=== PATIENT | male | born 1945 | race African-American/Black ===

== ENCOUNTER 2017-04-30 20:04 | Emergency (ER) | payer OTHER ==
[2017-04-30 20:14] VITALS: BP 160/78; PULSE 59; TEMP 97.8; BMI 24.4
--- NOTE | 2017-04-30 20:54 | PDOC ---
History of Present Illness - General Chief Complaint: Chest Pain Stated Complaint: CHEST PAIN Time Seen by Provider: 04/30/17 20:14 History Source: Patient Exam Limitations: No Limitations - History of Present Illness Initial Comments: 04/30/17 20:51 72 y/o M with PMH HTN who presents to the ED c/o chest tightness over the past two days. As per pt, yesterday, he noticed chest tightness in his L axilla after increased physical exertion. It radiated to the right side of his anterior chest, and was a/w LUE numbness. Pt felt this pain yesterday when working around the house- cooking, cleaning, moving vases. The pain was alleviated when he lay down to sleep, and returned today when he was working around the house. Pt endorses increased stress recently as his mother has been in the hospital, and he was recently in the [facility] custodial. He states that he has had difficulty caring for his mother and moving homes. Pt also endorses mild tinnitus (may be related to his increased aspirin intake). Otherwise pt denies fever, chills, chest pain, diaphoresis, N/V/D, or changes in urinary or bowel function. PMH: as above PsxH: R knee- bursitis, drained meds: denies allergies: NKDA FH: mother - DM SH: lives at home currently. quit smoking cigarettes 3-4 years ago, but had smoked for 20-30 yrs total, many cigars. Unable to quantify. Used to drink alcohol "was drunk for three years". Smoked marijuana in past, as well as " other drugs" but would not specify Past History - Past Medical History Allergies/Adverse Reactions: Allergies Allergy/AdvReac Type Severity Reaction Status Date / Time No Known Allergies Allergy Verified 10/15/14 11:11 Home Medications: Ambulatory Orders Hydrochlorothiazide 25 mg PO DAILY #30 tablet 10/15/14 COPD: No - Suicide/Smoking/Psychosocial Hx Smoking History: Current some day smoker Have you smoked in the past 12 months: Yes Information on smoking cessation initiated: No Hx Alcohol Use: No Drug/Substance Use Hx: No Review of Systems - Review of Systems Able to Perform ROS?: Yes Respiratory: Yes: Shortness of Breath Cardiac (ROS): Yes: Chest Tightness All Other Systems: Reviewed and Negative *Physical Exam - Vital Signs Last Vital Signs Temp Pulse Resp BP Pulse Ox 97.8 F 59 L 18 160/78 100 04/30/17 20:12 04/30/17 20:12 04/30/17 20:12 04/30/17 20:12 04/30/17 20:12 - Physical Exam General Appearance: Yes: Nourished, Appropriately Dressed HEENT: positive: EOMI, CHANTAL Neck: positive: Supple Respiratory/Chest: positive: Lungs Clear, Normal Breath Sounds Cardiovascular: positive: Regular Rhythm, Regular Rate, S1, S2 Vascular Pulses: Dorsalis-Pedis (R): 2+, Doralis-Pedis (L): 2+ Gastrointestinal/Abdominal: positive: Normal Bowel Sounds, Soft Musculoskeletal: positive: Normal Inspection, Other (normal active and passive ROM ) Extremity: positive: Normal Range of Motion 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 Likely musculoskeletal pain however will complete cardio work up as pt with chest pain. R/o ACS. Will also order general labs - CBC, CMP, coags , EKG, trops/cardiac profile. And reassess 04/30/17 23:19 CK MB elevated 4.6 will trend next CK MB/Trop/Cardiac profile at 1AM 04/30/17 23:48 will also gently hydrate - 1L NS Cr 1.6 - unclear of baseline 04/30/17 23:50 Will give aspirin 324mg x 1 *DC/Admit/Observation/Transfer Diagnosis at time of Disposition: Chest pain, Hypertension - Discharge Dispostion Disposition: AGAINST MEDICAL ADVICE Condition at time of disposition: Fair - Referrals Referrals: Tom Taylor MD [Staff Physician] - Lea Velasco MD [Primary Care Provider] - - Patient Instructions Printed Discharge Instructions: DI for Chest Pain Additional Instructions: Please call the brazing machine operator automatic this AM. Please call Dr. Reynoso this Am. Please keep your appointment as scheduled for thursday. Please return to the ED if you develop any chest pain or shortness of breath. Please return to the ED with any further concerns. Your troponin (cardiac enzyme) was mildly elevated. Please take an aspirin daily. - Post Discharge Activity
--- NOTE | 2017-04-30 21:14 | PDOC ---
Attending Attestation - Resident Resident Name: Glenda Olivarez - ED Attending Attestation I have performed the following: I have examined & evaluated the patient, The case was reviewed & discussed with the resident, I agree w/resident's findings & plan, Exceptions are as noted - Medical Decision Making 04/30/17 21:14 I, Dr. Flor Miner, DO, attest that this document has been prepared under my direction and personally reviewed by me in its entirety. I further attest, that it accurately reflects all work, treatment, procedures and medical decision -making performed by me. 04/30/17 23:48 a/p: 72yo male with L axillary pain that radiates across his chest -atypical presentation for ACS, however hx of HTN and noncompliant with meds -will check labs, ekg, cxr -will send trops x 2 -nontoxic in appearnace -cp free at this time 04/30/17 23:49 trop 0.05. will repeat Cr 1.6, baseline 1.3 will give ivf hydration 05/01/17 02:01 pt has been cp free in the ED has appt thursday with Dr. Velasco low risk cp, can follow up outpt with cardiology if trops negative 05/01/17 02:05 troponin did increase discussed with patient staying for another trop and cards eval call placed to Dr. Reynoso, awaiting call back pt agreeable to stay for further eval 05/01/17 02:19 pt now states he cannot stay for further eval. states he wants to sign out AMA. states he has to take care of his mother and he is the only one to do it. states he has an appt on thursday with Dr. Reynoso. States he will call the oncology nurse first thing today and arrange for follow up. states he understands all reasons to return to the ED. States he understands his cardiac enzymes have mildly elevated and his chest discomfort most likely is coming from the heart and he needs further eval. states he understands he is signing out AMA. states he will take asa daily. 05/01/17 02:20 Note: The patient insists on leaving the emergency dept and is signing out against medical advice. The patient understands the risks and complications that may result from the refusal of medical care and admission which includes and permanent disability. The patient has the mental capacity of understanding the risks of refusing care and is capable of making an informed decision. The patient was instructed to return to the emergency department should he change his mind regarding medical care or should his condition worsen. The patient signed the Against Medical Advice form. <Flor Miner - Last Filed: 05/01/17 02:19> - HPI HPI: 05/01/17 02:25 Patient is a 72 year old male with a significant history of HTN who presents to the ED with complaints of chest tightness that began 2 days ago. Patient reports experiencing increased chest tightness that began 2 days ago while at home, prompting him to come into the ED for further evaluation. He reports chest discomfort began in his left armpit yesterday afternoon that he states began to radiate towards his chest that is worse with exertion. Patient reports experiencing associated numbness and tingling in his left arm and fingertips. He reports symptoms subsided when he layed down to sleep but states they returned this morning while he was active around his home. Patient reports experiencing associated intermittent Sob with exertion. He reports beginning to take his HTN medication but states he previously was not on in for multiple years. Denies nausea, vomiting. Denies fevers, chills. Denies contact with sick individuals, out of state travelling. Denies any other symptoms. Allergies: None Social history: Current smoker. No alcohol. No illicit drugs. Surgical history: None PMD: Dr. Velasco. - Physicial Exam PE: 05/01/17 02:25 GENERAL: Awake, alert, and fully oriented, in no acute distress HEAD: No signs of trauma EYES: PERRLA, EOMI, sclera anicteric, conjunctiva clear ENT: Auricles normal inspection, hearing grossly normal, nares patent, oropharynx clear without exudates. Moist mucosa NECK: Normal ROM, supple, no lymphadenopathy, JVD, or masses LUNGS: Breath sounds equal, clear to auscultation bilaterally. No wheezes, and no crackles HEART: Regular rate and rhythm, normal S1 and S2, no murmurs, rubs or gallops ABDOMEN: Soft, nontender, normoactive bowel sounds. No guarding, no rebound. No masses EXTREMITIES: Normal range of motion, no edema. No clubbing or cyanosis. No cords, erythema, or tenderness NEUROLOGICAL: Cranial nerves II through XII grossly intact. Normal speech, normal gait SKIN: Warm, Dry, normal turgor, no rashes or lesions noted. - Medical Decision Making 05/01/17 02:25 Documentation prepared by Bruno Luciano, acting as medical customer service representative for Flor Miner DO, MD/. <Bruno Luciano - Last Filed: 05/01/17 02:26> Discharge Disposition - Discharge Dispostion Admit: Yes <Flor Miner - Last Filed: 05/01/17 02:19> <Bruno Luciano - Last Filed: 05/01/17 02:26> - Diagnosis Chest pain, Hypertension - Discharge Dispostion Disposition: AGAINST MEDICAL ADVICE Condition at time of disposition: Fair - Referrals Referrals: Lea Velasco MD [Primary Care Provider] - Tom Taylor MD [Staff Physician] - - Patient Instructions Printed Discharge Instructions: DI for Chest Pain Additional Instructions: Please call the oncology nurse this AM. Please call Dr. Reynoso this Am. Please keep your appointment as scheduled for thursday. Please return to the ED if you develop any chest pain or shortness of breath. Please return to the ED with any further concerns. Your troponin (cardiac enzyme) was mildly elevated. Please take an aspirin daily. - Post Discharge Activity Heart Score/ECG Review - History History: Slightly suspicious - Electrocardiogram EKG: Normal - Age Age: >/= 65 - Risk Factors Risk Factors Heart Score: Yes Hx Hypertension Based on the list above the patient has:: 1-2 risk factors - Troponin Troponin: 1-3x normal limit - Score Heart Score - Total: 4 - ECG Intrepretation Comment:: 04/30/17 21:14 sinus at 61, nl axis, nl interval, t wave inversions v6, I, avl, no acute findings, abnl ekg <Flor Miner - Last Filed: 05/01/17 02:19>
[2017-04-30 21:35] LABS: BASO % 0.5 % (0-2.0); EOS % 1.3 % (0-4.5); HEMATOCRIT 39.4 % (35.4-49); HEMOGLOBIN 13.3 GM/dL (11.7-16.9); LYMPH % 30.3 % (8-40); MCH 29.5 pg (25.7-33.7); MCHC 33.7 g/dl (32.0-35.9); MEAN CELL VOLUME 87.4 fl (80-96); MONO % 10.9 % (3.8-10.2); PLATELET COUNT 205 K/MM3 (134-434); RBC 4.51 M/mm3 (4.00-5.60); RDW 15.2 % (11.9-15.9); WHITE BLOOD COUNT 5.7 K/mm3 (4.0-10.0)
[2017-04-30 21:51] LABS: INR 0.96 (0.82-1.09); PROTHROMBIN TIME (PATIENT) 10.9 SEC (9.98-11.88)
[2017-04-30 22:00] LABS: ALBUMIN 3.6 g/dl (3.4-5.0); ANION GAP 9 (8-16); BILIRUBIN,TOTAL 0.4 mg/dL (0.2-1.0); BLOOD UREA NITROGEN 19 mg/dL (7-18); CALCIUM 8.6 mg/dL (8.5-10.1); CHLORIDE 108 mmol/L (98-107); CO2 27 mmol/L (21-32); CREATININE 1.6 mg/dL (0.7-1.3); GLUCOSE,RANDOM 83 mg/dL (74-106); POTASSIUM 3.8 mmol/L (3.5-5.1); SGOT/AST 27 U/L (15-37); SGPT/ALT 37 U/L (12-78); SODIUM 144 mmol/L (136-145); TOT PROT 6.5 g/dl (6.4-8.2)
[2017-04-30 22:02] LABS: ALK PHOS 83 U/L (45-117)
[2017-04-30] MEDS ORDERED: SODIUM CHLORIDE 1,000 ML IV STA (23:47)
[2017-04-30] MEDS ORDERED: ASPIRIN 81 MG CHEWABLE TABLETS PO ONE (23:50)
[2017-05-01] MEDS ORDERED: ASPIRIN 81 MG CHEWABLE TABLETS ONE (00:22)
--- NOTE | 2017-05-01 08:48 | EKG ---
Test Reason : Blood Pressure : / mmHG Vent. Rate : 061 BPM Atrial Rate : 061 BPM P-R Int : 154 ms QRS Dur : 096 ms QT Int : 420 ms P-R-T Axes : 059 006 063 degrees QTc Int : 422 ms POOR DATA QUALITY, INTERPRETATION MAY BE ADVERSELY AFFECTED NORMAL SINUS RHYTHM NORMAL ECG WHEN COMPARED WITH ECG OF 15-OCT-2014 12:45, T WAVE INVERSION NO LONGER EVIDENT IN LATERAL LEADS Confirmed by LIO MORENO, СВЕТЛАНА ([id number]) on 05/01/2017 8:48:04 AM Referred By: Confirmed By:СВЕТЛАНА VACA MD
== END 2017-05-01 02:48 | disposition left against medical advice (07) ==
LOC: JER 20:04
PROC: 3E0337Z Introduction of Electrolytic and Water Balance Substance into Peripheral Vein, Percutaneous Approach (ICD-10-PCS; principal; 2017-04-30)
DX: R07.9 Chest pain, unspecified (principal); I10 Essential (primary) hypertension
CPT/HCPCS: 36415; 71046-TC-FY; 80053; 82550; 82553; 84484; 85025; 85610; 93005; 93010; 99283-25

== ENCOUNTER 2017-12-14 23:01 | Emergency (ER) | payer OTHER ==
[2017-12-14 23:10] VITALS: TEMP 98.7; BMI 25.0
--- NOTE | 2017-12-15 00:56 | PDOC ---
History of Present Illness - General Chief Complaint: Blood Pressure Problem Stated Complaint: HIGH BLOOD PRESSURE Time Seen by Provider: 12/15/17 00:15 - History of Present Illness Initial Comments: The patient is a 72M w/ a history of HTN who presents for evaluation of a headache at home that lasted for several seconds which has since resolved. He reports that he has not been taking his BP medications (metoprolol and amlodipine) for at least a month and was concerned that he was having a stroke. The patient reports that the LOPEZ was b/l frontal headache described as pressure and then felt a sharp pain shoot across the left side of his head posteriorly. At that time he denies having chest pain, changes in vision He denies pain currently or any other symptoms. 12/15/17 00:52 Past History - Past Medical History Allergies/Adverse Reactions: Allergies Allergy/AdvReac Type Severity Reaction Status Date / Time No Known Allergies Allergy Verified 12/14/17 23:08 Home Medications: Ambulatory Orders Amlodipine Besylate 10 mg PO DAILY 30 Days #30 tablet 12/15/17 Amlodipine Besylate [Norvasc -] 10 mg PO DAILY 12/15/17 Metoprolol Tartrate 25 mg PO DAILY 30 Days #30 tablet 12/15/17 Metoprolol Tartrate [Lopressor -] 25 mg PO DAILY 12/15/17 COPD: No HTN: Yes - Suicide/Smoking/Psychosocial Hx Smoking History: Never smoked Have you smoked in the past 12 months: Yes If you are a former smoker, when did you quit?: many years ago Information on smoking cessation initiated: No Hx Alcohol Use: No Drug/Substance Use Hx: No Review of Systems - Review of Systems Able to Perform ROS?: Yes Comments:: GENERAL/CONSTITUTIONAL: No fever or chills. No weakness HEAD, EYES, EARS, NOSE AND THROAT: No change in vision. No ear pain or discharge. No sore throat CARDIOVASCULAR: No chest pain or shortness of breath RESPIRATORY: No cough, wheezing, or hemoptysis GASTROINTESTINAL: No nausea, vomiting, diarrhea or constipation GENITOURINARY: No dysuria, frequency, or change in urination MUSCULOSKELETAL: No joint or muscle swelling or pain. No neck or back pain SKIN: No rash NEUROLOGIC: No current headache, vertigo, loss of consciousness, or change in strength/sensation ENDOCRINE: No increased thirst. No abnormal weight change HEMATOLOGIC/LYMPHATIC: No anemia, easy bleeding, or history of blood clots ALLERGIC/IMMUNOLOGIC: No hives or skin allergy 12/15/17 01:05 Is the patient limited Bengali proficient: No *Physical Exam - Vital Signs Last Vital Signs Temp Pulse Resp BP Pulse Ox 98.7 F 89 18 156/98 100 12/14/17 23:08 12/14/17 23:08 12/14/17 23:08 12/14/17 23:08 12/14/17 23:08 - Physical Exam Comments: GENERAL: Awake, alert, and fully oriented, in no acute distress HEAD: No signs of trauma, normocephalic, atraumatic EYES: PERRL, EOMI, sclera anicteric, conjunctiva clear ENT: Hearing grossly normal, nares patent, oropharynx clear without exudates. Moist mucosa NECK: Normal ROM, supple, no lymphadenopathy LUNGS: No distress, speaks full sentences, clear to auscultation bilaterally HEART:Regular rate and rhythm, normal S1 and S2, no murmurs appreciated, peripheral pulses normal and equal bilaterally ABDOMEN: Soft, nontender, normoactive bowel sounds. No guarding, no rebound EXTREMITIES : Normal inspection, Normal range of motion, no edema NEUROLOGICAL: Cranial nerves II through XII grossly intact. Normal speech, normal gait, no focal sensorimotor deficits 12/15/17 01:05 Medical Decision Making - Medical Decision Making The patient is a 72M who comes in for evaluation of a transient LOPEZ at home that has since resolved and also has not taken his BP medication for the past month 2 /2 stress/not filling his medications ED Course Amlodipine 10mg PO once Lopressor 25mg PO once Will send Rx for both of his medications to the pharmacy of his choosing Patient has an appointment this with his PCP Plan for D/C and PCP f/u Discharge instructions and return precautions given Patient in agreement and verbalizes understanding of the plan Dispo: Home 12/15/17 01:02 *DC/Admit/Observation/Transfer Diagnosis at time of Disposition: Hypertension Qualifiers: Hypertension type: unspecified Qualified Code(s): I10 - Essential (primary) hypertension Headache Qualifiers: Headache type: tension-type Headache chronicity pattern: acute headache Intractability: not intractable Qualified Code(s): G44.209 - Tension-type headache, unspecified, not intractable - Discharge Dispostion Disposition: HOME Condition at time of disposition: Stable Decision to Admit order: No - Prescriptions Prescriptions: Amlodipine Besylate 10 mg PO DAILY 30 Days #30 tablet Metoprolol Tartrate 25 mg PO DAILY 30 Days #30 tablet - Referrals Referrals: Lea Velasco MD [Primary Care Provider] - - Patient Instructions Printed Discharge Instructions: DI for High Blood Pressure, Tension Headache - Post Discharge Activity
[2017-12-15] MEDS ORDERED: METOPROLOL TARTRATE 25 MG TABLET (FP) PO ONE (01:00)
[2017-12-15] MEDS ORDERED: amLODIPine BESYLATE 10 MG TABLET (FP) PO ONE (01:00)
[2017-12-15] MEDS ORDERED: METOPROLOL TARTRATE 25 MG TABLET (FP) ONE (01:07)
[2017-12-15] MEDS ORDERED: amLODIPine BESYLATE 5 MG TABLET (FP) ONE (01:07)
--- NOTE | 2017-12-15 01:30 | PDOC ---
Attending Attestation - HPI HPI: 12/15/17 01:30 The patient is a 72 year old male with a past medical history of hypertension who presents to the emergency department for evaluation of elevated blood pressure. The patient reports sudden onset of bilateral frontal headache described as a transient pressure on the forehead and behind his eyes, as well as a sharp pain down the left side. Of note, the patient reports taking metoprolol and amlodipine, but denies taking the aforementioned medications for the last month secondary to recent stressors. He reports visiting the emergency department today due to his fear that he might be having a stroke. In the ED, the patients BP is 141/92. PCP: Dr. Velasco - Physicial Exam PE: Wnwd 72 y/o male Head ncat Neck no jvd Heart RRR Lungs cta b/l Abd soft nt,nd No edema in lower extremities Skin warm and dry, covered in tattoos A&Ox3 <Julian Garnica - Last Filed: 12/15/17 01:30> - Resident Resident Name: Feng Angela - ED Attending Attestation I have performed the following: I have examined & evaluated the patient, The case was reviewed & discussed with the resident, I agree w/resident's findings & plan, Exceptions are as noted - Physicial Exam PE: 12/15/17 01:38 neurology exam cn2-12 grossly intact, no clonus, no ataxia,motor strength 5/5 b /l, no drift, no dysmetria, no slurred speech ,no visual deficits repeat nm=890/92 before he took his BP medication. He has an appt this Thrusday with Dr Martin RX sent to [facility] - Medical Decision Making 12/15/17 01:43 IMP noncomplinace with blood pressure meds plan seeing PCP this pt had no chest pain,no shortness of breath,no severe headache,no focal neuro deficits <Mercy Campbell - Last Filed: 12/15/17 01:44> Attestations - Attestations Documentation prepared by Julian Garnica, acting as medical doctor md/medical director for Mercy Campbell MD. <Julian Garnica - Last Filed: 12/15/17 01:30>
[2017-12-15 01:42] VITALS: BP 141/92; PULSE 76
== END 2017-12-15 01:41 | disposition home or self-care (01) ==
LOC: JER 23:01
DX: I10 Essential (primary) hypertension (principal); G44.209 Tension-type headache, unspecified, not intractable; Z91.14 Patient's other noncompliance with medication regimen
CPT/HCPCS: 99282-25

== ENCOUNTER 2020-04-12 02:47 | Inpatient (IN) | payer OTHER ==
[2020-04-12 03:20] VITALS: BMI 29.8
[2020-04-12] MEDS ORDERED: ACETAMINOPHEN 1000 MG/100 ML VIAL (NON FORMULARY) IVPB ONE (03:27)
[2020-04-12] MEDS ORDERED: ACETAMINOPHEN INJECTION 100 ML IVPB ONE (03:37)
[2020-04-12] MEDS ORDERED: NITROGLYCERIN SUBLINGUAL 1/150 0.4 MG TAB SL ONE (03:39)
[2020-04-12] MEDS ORDERED: LORazepam 2 MG/ML SDV VIAL IVPUSH ONE (03:40)
[2020-04-12] MEDS ORDERED: LORazepam 2 MG/ML SDV VIAL ONE (03:41)
[2020-04-12 03:44] LABS: BASO % 1.1 % (0-2.0); EOS % 1.1 % (0-4.5); HEMOGLOBIN 15.1 GM/dL (11.7-16.9); LYMPH % 17.1 % (8-40); MCH 29.3 pg (25.7-33.7); MCHC 32.9 g/dl (32.0-35.9); MEAN CELL VOLUME 88.9 fl (80-96); MEAN PLT VOLUME 8.4 fl (7.5-11.1); NEUT % 73.7 % (42.8-82.8); PLATELET COUNT 239 K/MM3 (134-434); RBC 5.17 M/mm3 (4.00-5.60); RDW 18.6 % (11.9-15.9); WHITE BLOOD COUNT 6.8 K/mm3 (4.0-10.0)
[2020-04-12 03:49] LABS: INR 0.88 (0.83-1.09); PROTHROMBIN TIME (PATIENT) 10.7 SEC (9.7-13.0)
[2020-04-12 04:01] LABS: POTASSIUM 4.1 mmol/L (3.5-5.1)
[2020-04-12 04:03] LABS: CALCIUM 8.6 mg/dL (8.5-10.1)
[2020-04-12 04:04] LABS: ALBUMIN 2.6 g/dl (3.4-5.0); BLOOD UREA NITROGEN 19.3 mg/dL (7-18); MAGNESIUM 1.9 mg/dL (1.8-2.4)
[2020-04-12 04:07] LABS: CREATININE 2.9 mg/dL (0.55-1.3)
[2020-04-12 04:08] LABS: BILIRUBIN,TOTAL 0.4 mg/dL (0.2-1); TOT PROT 5.9 g/dl (6.4-8.2)
[2020-04-12 04:12] LABS: N-TERMINAL BNP 1916.8 pg/ml (5-125)
[2020-04-12] MEDS ORDERED: ASPIRIN 81 MG CHEWABLE TABLETS PO ONE (04:21)
[2020-04-12] MEDS ORDERED: SODIUM CHLORIDE 0.9% 500 ML INFUS.BAG IV ONE (04:44)
[2020-04-12] MEDS ORDERED: ASPIRIN 81 MG CHEWABLE TABLETS ONE (04:53)
[2020-04-12 08:40] LABS: PHENCYCLIDINE,URINE NEGATIVE ng/ml (CUTOFF=25); URINE BENZODIAZEPINES NEGATIVE ng/ml (CUTOFF=200)
[2020-04-12 08:41] LABS: METHADONE, UR NEGATIVE ng/ml (CUTOFF=300)
[2020-04-12] MEDS ORDERED: HEPARIN NA (PORCINE) 5,000 UNITS/ML 1ML VIAL ONE (08:41)
[2020-04-12] MEDS ORDERED: amLODIPine BESYLATE 5 MG TABLET (FP) ONE (08:41)
[2020-04-12 08:43] LABS: COCAINE, UR NEGATIVE ng/ml (CUTOFF=300); OPIATES, URI NEGATIVE ng/ml (CUTOFF=300); URINE AMPHETAMINES NEGATIVE ng/ml (CUTOFF=500); URINE BARBITURATES NEGATIVE ng/ml (CUTOFF=200)
[2020-04-12] MEDS: HEPARIN NA (PORCINE) 5,000 UNITS/ML 1ML VIAL SQ SCH ×2 (09:02→22:15)
[2020-04-12] MEDS: amLODIPine BESYLATE 10 MG TABLET (FP) PO SCH (09:02)
[2020-04-12] MEDS ORDERED: ATORVASTATIN CA 80 MG TABLET (FP) ONE (10:13)
[2020-04-12] MEDS ORDERED: LABETALOL HCL 100 MG TABLET (FP) ONE (10:13)
[2020-04-12] MEDS ORDERED: LABETALOL HCL 200 MG TABLET (FP) PO ONE (10:15)
[2020-04-12] MEDS ORDERED: ATORVASTATIN CA 80 MG TABLET (FP) PO ONE (10:15)
[2020-04-12 10:58] LABS: MAGNESIUM 2.1 mg/dL (1.8-2.4)
[2020-04-12] MEDS: LABETALOL HCL 100 MG TABLET (FP) PO SCH (22:14)
[2020-04-13 07:50] VITALS: PULSE 93
[2020-04-13 07:59] LABS: BASO % 0.8 % (0-2.0); EOS % 1.2 % (0-4.5); HEMATOCRIT 42.7 % (35.4-49); HEMOGLOBIN 13.8 GM/dL (11.7-16.9); LYMPH % 25.9 % (8-40); MCH 28.7 pg (25.7-33.7); MCHC 32.2 g/dl (32.0-35.9); MEAN CELL VOLUME 89.1 fl (80-96); MEAN PLT VOLUME 8.8 fl (7.5-11.1); MONO % 7.8 % (3.8-10.2); NEUT % 64.3 % (42.8-82.8); PLATELET COUNT 228 K/MM3 (134-434); RDW 18.4 % (11.9-15.9); WHITE BLOOD COUNT 6.3 K/mm3 (4.0-10.0)
[2020-04-13 08:33] LABS: POTASSIUM 4.9 mmol/L (3.5-5.1)
[2020-04-13 08:37] LABS: ALBUMIN 2.5 g/dl (3.4-5.0); CALCIUM 9.2 mg/dL (8.5-10.1)
[2020-04-13 08:38] LABS: BLOOD UREA NITROGEN 22.6 mg/dL (7-18)
[2020-04-13 08:39] LABS: TOT PROT 5.4 g/dl (6.4-8.2)
[2020-04-13 08:41] LABS: CREATININE 2.8 mg/dL (0.55-1.3)
[2020-04-13 08:42] LABS: BILIRUBIN,TOTAL 0.6 mg/dL (0.2-1)
[2020-04-13] MEDS: LABETALOL HCL 100 MG TABLET (FP) PO SCH (09:10)
[2020-04-13] MEDS: HEPARIN NA (PORCINE) 5,000 UNITS/ML 1ML VIAL SQ SCH (09:10)
[2020-04-13] MEDS: amLODIPine BESYLATE 10 MG TABLET (FP) PO SCH (09:10)
[2020-04-13] MEDS ORDERED: ASPIRIN 81 MG CHEWABLE TABLETS PO SCH (10:00)
[2020-04-13] MEDS ORDERED: LABETALOL HCL 100 MG TABLET (FP) PO SCH (12:15)
[2020-04-13 15:41] VITALS: BP 128/91; TEMP 98.2
[2020-04-13] MEDS ORDERED: ATORVASTATIN CA 80 MG TABLET (FP) PO SCH (22:00)
[2020-04-14] MEDS ORDERED: NIFEdipine E.R 60 MG TABLET PO SCH (10:00)
== END 2020-04-13 18:08 | disposition home or self-care (01) | DRG 918 ==
LOC: JER 02:47 → JERBED 04:25 → J4W 20:28
PROVIDERS: ADMIT Internal Medicine
DX: T38.7X1A Poisoning by androgens and anabolic congeners, accidental (unintentional), initial encounter (principal); N17.9 Acute kidney failure, unspecified; I24.8 Other forms of acute ischemic heart disease; E87.0 Hyperosmolality and hypernatremia; I16.0 Hypertensive urgency; E78.5 Hyperlipidemia, unspecified; R77.8 Other specified abnormalities of plasma proteins; R79.89 Other specified abnormal findings of blood chemistry; F12.20 Cannabis dependence, uncomplicated; I12.9 Hypertensive chronic kidney disease with stage 1 through stage 4 chronic kidney disease, or unspecified chronic kidney disease; N18.9 Chronic kidney disease, unspecified; Z91.14 Patient's other noncompliance with medication regimen; R06.02 Shortness of breath; Y92.098 Other place in other non-institutional residence as the place of occurrence of the external cause
CPT/HCPCS: 36415; 71045-TC-FY; 76775-TC; 80053; 80061; 80307; 82550; 82553; 82565; 83036; 83721; 83735; 83880; 83935; 84156; 84443; 84484; 85025; 85379; 85610; 93005; 93010; 93306-TC; 99285-25; C9803; J0131; J1644; U0003

== ENCOUNTER 2022-03-20 07:47 | Inpatient (IN) | payer OTHER ==
[2022-03-20 07:57] VITALS: BMI 24.4
[2022-03-20] MEDS ORDERED: methylPREDNISolone NA SUCC 125 MG/2 ML VIAL IVPUSH ONE (08:34)
[2022-03-20 08:41] LABS: VENOUS BASE EXCESS -9.9 mmol/L (-2-2); VENOUS O2 SATURATION 41.7 % (70-80); VENOUS PCO2 35.3 mmHg (38-52); VENOUS PH 7.275 (7.310-7.410)
[2022-03-20] MEDS: ALBUTEROL SO4 2.5/IPRATROPIUM 0.5 INH SOL 3 ML VIAL.NEB. NEB SCH ×4 (08:42→09:19)
[2022-03-20] MEDS ORDERED: methylPREDNISolone NA SUCC 125 MG/2 ML VIAL ONE (08:43)
[2022-03-20 08:49] LABS: BASO % 0.7 % (0-2.0); EOS % 0.6 % (0-4.5); HEMATOCRIT 27.8 % (35.4-49); HEMOGLOBIN 9.2 GM/dL (11.7-16.9); LYMPH % 14.2 % (8-40); MCHC 32.9 g/dl (32.0-35.9); MEAN PLT VOLUME 7.3 fl (7.5-11.1); MONO % 4.6 % (3.8-10.2); NEUT % 79.9 % (42.8-82.8); PLATELET COUNT 288 10^3/uL (134-434); RBC 3.28 M/mm3 (4.00-5.60); RDW 16.1 % (11.9-15.9); WHITE BLOOD COUNT 7.6 K/mm3 (4.0-10.0)
[2022-03-20 08:56] LABS: INR 0.98 (0.83-1.09); PROTHROMBIN TIME (PATIENT) 11.3 SEC (9.7-13.0)
[2022-03-20 08:59] LABS: ACTIVATED PTT 31.6 SECONDS (25.2-36.5)
[2022-03-20 09:02] LABS: CHLORIDE 121 mmol/L (98-107); SODIUM 147 mmol/L (136-145)
[2022-03-20 09:04] LABS: ALBUMIN 1.9 g/dl (3.4-5.0); ANION GAP 8 MMOL/L (8-16); BLOOD UREA NITROGEN 67.7 mg/dL (7-18); CALCIUM 8.4 mg/dL (8.5-10.1); CO2 18 mmol/L (21-32); GLUCOSE,RANDOM 104 mg/dL (74-106); MAGNESIUM 1.9 mg/dL (1.8-2.4)
[2022-03-20 09:06] LABS: PHOSPHOROUS 6.9 mg/dL (2.5-4.9); SGPT/ALT 9 U/L (13-61)
[2022-03-20 09:08] LABS: SGOT/AST 12 U/L (15-37)
[2022-03-20 09:09] LABS: BILIRUBIN,TOTAL 0.2 mg/dL (0.2-1); TOT PROT 4.9 g/dl (6.4-8.2)
[2022-03-20] MEDS ORDERED: PANTOPRAZOLE SODIUM 40 MG VIAL IVPUSH ONE (09:09)
[2022-03-20 09:10] LABS: ALK PHOS 70 U/L (45-117)
[2022-03-20 09:15] LABS: CREATININE 7.5 mg/dL (0.55-1.3)
[2022-03-20] MEDS ORDERED: PANTOPRAZOLE SODIUM 40 MG/100 ML BAG IVPB ONE ×2 (09:29→16:29)
[2022-03-20 10:18] LABS: N-TERMINAL BNP > 35000.0 pg/ml (5-125)
[2022-03-20 11:29] LABS: EPI CELLS 24 /uL (0-25.1); HYALINE CASTS 2 /uL (0-3.1); URINE APPEARANCE CLOUDY; URINE BACTERIA 3 /uL (0-1359); URINE BILIRUBIN NEGATIVE (NEGATIVE); URINE COLOR YELLOW; URINE GLUCOSE (UA) 2+ (NEGATIVE); URINE KETONE NEGATIVE (NEGATIVE); URINE LEUK ESTERASE NEGATIVE (NEGATIVE); URINE NITRITE NEGATIVE (NEGATIVE); URINE PROTEIN 4+ (NEGATIVE); URINE UROBILINOGEN 0.2 mg/dL (0.2-1.0); URINE WBC 23 /uL (0-25.8)
[2022-03-20 11:30] LABS: URINE RBC 47.1 /uL (0-23.9)
[2022-03-20] MEDS ORDERED: LABETALOL HCL 100 MG TABLET (FP) PO ONE (12:36)
[2022-03-20] MEDS ORDERED: NIFEdipine E.R 60 MG TABLET PO ONE ×2 (12:36→12:39)
[2022-03-20] MEDS ORDERED: LABETALOL HCL 100 MG TABLET (FP) ONE (12:38)
[2022-03-20] MEDS ORDERED: MIDAZOLAM HCL 2 MG/2 ML SINGLE DOSE VIAL IVPUSH ONE (13:33)
[2022-03-20] MEDS ORDERED: LIDOCAINE HCL/EPINEPHRINE/PF 10 ML VIAL IM ONE (13:41)
[2022-03-20] MEDS ORDERED: MIDAZOLAM HCL 2 MG/2 ML SINGLE DOSE VIAL ONE (13:43)
[2022-03-20] MEDS ORDERED: FENTANYL CITRATE/PF 50 MCG/ML VIAL ONE (13:44)
[2022-03-20] MEDS ORDERED: LIDOCAINE 1%/EPI 1:100000 (20 ML MULTI DOSE VIAL) ONE (13:52)
[2022-03-20] MEDS ORDERED: FUROSEMIDE 100 MG/10 ML INJECTABLE VIAL IVPB SCH (14:51)
[2022-03-20] MEDS ORDERED: ACETAMINOPHEN 1000 MG/100 ML BAG IVPB ONE (16:23)
[2022-03-20] MEDS ORDERED: ACETAMINOPHEN INJECTION 100 ML IVPB ONE (16:28)
[2022-03-20] MEDS ORDERED: FUROSEMIDE 40 MG/4 ML INJECTABLE VIAL ONE (16:29)
[2022-03-20] MEDS: PANTOPRAZOLE SODIUM 40 MG VIAL IVPUSH SCH (16:38)
[2022-03-20] MEDS: FUROSEMIDE 40 MG/4 ML INJECTABLE VIAL IVPB SCH (16:38)
[2022-03-20] MEDS: NIFEdipine E.R 60 MG TABLET PO SCH (16:38)
[2022-03-20] MEDS ORDERED: ALBUTEROL SO4 2.5/IPRATROPIUM 0.5 INH SOL 3 ML VIAL.NEB. NEB PRN (17:35)
[2022-03-20 18:30] LABS: BF WBC & OTHER NUCLEATED CELLS 119 /mm3
[2022-03-20 18:51] LABS: BODY FLUID MONOCYTE 5 %
[2022-03-20 18:52] LABS: BODYL FLD EOSINOPHIL 1 %
[2022-03-20 19:02] LABS: BASO % 0.2 % (0-2.0); HEMATOCRIT 28.3 % (35.4-49); LYMPH % 5.2 % (8-40); MCH 27.5 pg (25.7-33.7); MCHC 31.8 g/dl (32.0-35.9); MEAN CELL VOLUME 86.4 fl (80-96); MEAN PLT VOLUME 7.4 fl (7.5-11.1); MONO % 0.8 % (3.8-10.2); NEUT % 93.8 % (42.8-82.8); PLATELET COUNT 271 10^3/uL (134-434); RBC 3.27 M/mm3 (4.00-5.60); RDW 16.6 % (11.9-15.9); WHITE BLOOD COUNT 7.4 K/mm3 (4.0-10.0)
[2022-03-20 19:26] LABS: CHOLESTEROL 184 mg/dL (50-200); TRIGLYCERIDES 62 mg/dL (0-150)
[2022-03-20 19:27] LABS: LDL CHOLESTEROL (ONLY SJRH) 96 mg/dL (5-100)
[2022-03-20 19:28] LABS: HDL CHOLESTEROL 79 mg/dL (40-60)
[2022-03-20 21:20] LABS: ANISOCYTOSIS 1+; MACROCYTOSIS 1+; OVALOCYTE 1+
[2022-03-20] MEDS ORDERED: ATORVASTATIN CA 40 MG TABLET (FP) PO SCH (22:00)
[2022-03-20] MEDS: SODIUM BICARBONATE 650 MG TABLET PO SCH (22:09)
[2022-03-20] MEDS: LABETALOL HCL 100 MG TABLET (FP) PO SCH (22:10)
[2022-03-20] MEDS ORDERED: ACETAMINOPHEN 500 MG TABLET (FP) PO ONE (22:58)
[2022-03-21] MEDS: FUROSEMIDE 40 MG/4 ML INJECTABLE VIAL IVPB SCH ×2 (05:31→14:18)
[2022-03-21 08:33] LABS: BASO % 0.3 % (0-2.0); HEMATOCRIT 25.2 % (35.4-49); HEMOGLOBIN 8.3 GM/dL (11.7-16.9); MCH 28.4 pg (25.7-33.7); MEAN PLT VOLUME 7.7 fl (7.5-11.1); MONO % 4.7 % (3.8-10.2); PLATELET COUNT 254 10^3/uL (134-434); RBC 2.93 M/mm3 (4.00-5.60); RDW 16.1 % (11.9-15.9); WHITE BLOOD COUNT 10.7 K/mm3 (4.0-10.0)
[2022-03-21 09:11] LABS: CHLORIDE 120 mmol/L (98-107); SODIUM 144 mmol/L (136-145)
[2022-03-21 09:21] LABS: ANION GAP 8 MMOL/L (8-16); BLOOD UREA NITROGEN 75.6 mg/dL (7-18); CO2 15 mmol/L (21-32); GLUCOSE,RANDOM 105 mg/dL (74-106); MAGNESIUM 1.8 mg/dL (1.8-2.4)
[2022-03-21 09:35] LABS: CREATININE 7.7 mg/dL (0.55-1.3)
[2022-03-21] MEDS: SODIUM BICARBONATE 650 MG TABLET PO SCH ×4 (09:42→21:48)
[2022-03-21] MEDS: PANTOPRAZOLE SODIUM 40 MG VIAL IVPUSH SCH (09:43)
[2022-03-21] MEDS: LABETALOL HCL 100 MG TABLET (FP) PO SCH ×2 (09:43→21:48)
[2022-03-21] MEDS: NIFEdipine E.R 60 MG TABLET PO SCH (09:43)
[2022-03-21] MEDS ORDERED: SODIUM BICARBONATE 8.4% 50 MEQ/50 ML DISP.SYRIN IVPUSH ONE (10:14)
[2022-03-21] MEDS: CALCIUM ACETATE 667 MG CAPSULE (FP) PO SCH ×2 (11:39→18:27)
[2022-03-21] MEDS: SODIUM ZIRCONIUM CYCLOSILICATE (LOKELMA) 5 GM PACKET PO SCH (11:39)
[2022-03-21 14:19] LABS: IRON SERUM 20 ug/dL (50-175)
[2022-03-21] MEDS: hydrALAZINE HCL 25 MG TABLET (FP) PO SCH (21:47)
[2022-03-22] MEDS: FUROSEMIDE 40 MG/4 ML INJECTABLE VIAL IVPB SCH ×2 (06:23→15:33)
[2022-03-22] MEDS: hydrALAZINE HCL 25 MG TABLET (FP) PO SCH ×3 (06:23→21:28)
[2022-03-22] MEDS: SODIUM BICARBONATE 650 MG TABLET PO SCH ×3 (06:23→21:28)
[2022-03-22] MEDS: LEVOTHYROXINE NA 75 MCG TABLET (FP) PO SCH (06:24)
[2022-03-22 07:31] LABS: BASO % 0.5 % (0-2.0); EOS % 1.5 % (0-4.5); HEMATOCRIT 24.1 % (35.4-49); HEMOGLOBIN 7.8 GM/dL (11.7-16.9); LYMPH % 13.7 % (8-40); MCH 28.1 pg (25.7-33.7); MCHC 32.6 g/dl (32.0-35.9); MEAN CELL VOLUME 86.4 fl (80-96); MEAN PLT VOLUME 7.5 fl (7.5-11.1); MONO % 4.5 % (3.8-10.2); NEUT % 79.8 % (42.8-82.8); PLATELET COUNT 241 10^3/uL (134-434); RBC 2.79 M/mm3 (4.00-5.60); RDW 16.6 % (11.9-15.9); WHITE BLOOD COUNT 7.4 K/mm3 (4.0-10.0)
[2022-03-22 07:49] LABS: CHLORIDE 122 mmol/L (98-107); SODIUM 145 mmol/L (136-145)
[2022-03-22 07:55] LABS: ALBUMIN 1.8 g/dl (3.4-5.0); ANION GAP 8 MMOL/L (8-16); BLOOD UREA NITROGEN 82.1 mg/dL (7-18); CALCIUM 7.8 mg/dL (8.5-10.1); CO2 15 mmol/L (21-32); GLUCOSE,RANDOM 100 mg/dL (74-106); MAGNESIUM 1.8 mg/dL (1.8-2.4)
[2022-03-22 07:57] LABS: PHOSPHOROUS 7.2 mg/dL (2.5-4.9); SGOT/AST 10 U/L (15-37); SGPT/ALT 9 U/L (13-61)
[2022-03-22 07:59] LABS: BILIRUBIN,TOTAL 0.2 mg/dL (0.2-1); TOT PROT 4.5 g/dl (6.4-8.2)
[2022-03-22 08:00] LABS: ALK PHOS 61 U/L (45-117); CREATININE 8.5 mg/dL (0.55-1.3)
[2022-03-22] MEDS: CALCIUM ACETATE 667 MG CAPSULE (FP) PO SCH ×3 (08:06→16:59)
[2022-03-22] MEDS: SODIUM ZIRCONIUM CYCLOSILICATE (LOKELMA) 5 GM PACKET PO SCH (09:50)
[2022-03-22] MEDS: PANTOPRAZOLE 40 MG TABLET PO SCH (09:50)
[2022-03-22] MEDS: LABETALOL HCL 100 MG TABLET (FP) PO SCH ×2 (09:50→21:28)
[2022-03-22 17:09] LABS: FREE KAPPA,SERUM 125.2 mg/L (3.3-19.4)
[2022-03-23] MEDS: FUROSEMIDE 40 MG/4 ML INJECTABLE VIAL IVPB SCH ×2 (06:28→14:48)
[2022-03-23] MEDS: hydrALAZINE HCL 25 MG TABLET (FP) PO SCH ×3 (06:28→21:33)
[2022-03-23] MEDS: SODIUM BICARBONATE 650 MG TABLET PO SCH ×3 (06:28→21:33)
[2022-03-23] MEDS: LEVOTHYROXINE NA 75 MCG TABLET (FP) PO SCH (06:29)
[2022-03-23] MEDS: CALCIUM ACETATE 667 MG CAPSULE (FP) PO SCH ×3 (08:00→18:13)
[2022-03-23 08:04] LABS: BASO % 0.5 % (0-2.0); EOS % 2.1 % (0-4.5); HEMATOCRIT 23.7 % (35.4-49); HEMOGLOBIN 7.8 GM/dL (11.7-16.9); LYMPH % 15.8 % (8-40); MCH 28.3 pg (25.7-33.7); MEAN CELL VOLUME 85.8 fl (80-96); MEAN PLT VOLUME 7.8 fl (7.5-11.1); NEUT % 75.6 % (42.8-82.8); PLATELET COUNT 247 10^3/uL (134-434); RBC 2.76 M/mm3 (4.00-5.60); RDW 16.7 % (11.9-15.9)
[2022-03-23 08:14] LABS: CHLORIDE 121 mmol/L (98-107); SODIUM 145 mmol/L (136-145)
[2022-03-23 08:21] LABS: ALBUMIN 1.7 g/dl (3.4-5.0); ANION GAP 8 MMOL/L (8-16); BLOOD UREA NITROGEN 85.4 mg/dL (7-18); CO2 17 mmol/L (21-32); GLUCOSE,RANDOM 87 mg/dL (74-106)
[2022-03-23 08:24] LABS: IRON SERUM 11 ug/dL (50-175); SGOT/AST 10 U/L (15-37); SGPT/ALT 10 U/L (13-61)
[2022-03-23 08:25] LABS: TOTAL IRON BINDING CAPACITY 145 ug/dL (250-450)
[2022-03-23 08:26] LABS: BILIRUBIN,TOTAL 0.2 mg/dL (0.2-1); TOT PROT 4.4 g/dl (6.4-8.2)
[2022-03-23 08:28] LABS: ALK PHOS 58 U/L (45-117)
[2022-03-23 08:44] LABS: CREATININE 8.6 mg/dL (0.55-1.3)
[2022-03-23] MEDS: PANTOPRAZOLE 40 MG TABLET PO SCH (09:31)
[2022-03-23] MEDS: LABETALOL HCL 100 MG TABLET (FP) PO SCH ×2 (09:31→21:33)
[2022-03-23] MEDS: SODIUM ZIRCONIUM CYCLOSILICATE (LOKELMA) 5 GM PACKET PO SCH (09:31)
[2022-03-23] MEDS ORDERED: IRON SUCROSE INJECTION 100 MG in SODIUM CHLORIDE 95 ML IVPB ONE (11:30)
[2022-03-24 00:06] LABS: BODY FLUID ALBUMIN 0.6 g/dL (Not Estab.)
[2022-03-24] MEDS: hydrALAZINE HCL 25 MG TABLET (FP) PO SCH ×3 (06:34→21:16)
[2022-03-24] MEDS: FUROSEMIDE 40 MG/4 ML INJECTABLE VIAL IVPB SCH ×2 (06:35→14:53)
[2022-03-24] MEDS: SODIUM BICARBONATE 650 MG TABLET PO SCH ×3 (06:35→21:16)
[2022-03-24] MEDS: LEVOTHYROXINE NA 75 MCG TABLET (FP) PO SCH (06:35)
[2022-03-24 07:40] LABS: BASO % 0.7 % (0-2.0); EOS % 2.3 % (0-4.5); HEMATOCRIT 21.8 % (35.4-49); HEMOGLOBIN 7.2 GM/dL (11.7-16.9); LYMPH % 16.4 % (8-40); MCH 28.2 pg (25.7-33.7); MEAN CELL VOLUME 85.5 fl (80-96); MEAN PLT VOLUME 7.6 fl (7.5-11.1); NEUT % 73.6 % (42.8-82.8); PLATELET COUNT 241 10^3/uL (134-434); RBC 2.55 M/mm3 (4.00-5.60); RDW 16.5 % (11.9-15.9); WHITE BLOOD COUNT 6.9 K/mm3 (4.0-10.0)
[2022-03-24] MEDS: CALCIUM ACETATE 667 MG CAPSULE (FP) PO SCH ×3 (07:49→17:38)
[2022-03-24 08:00] LABS: CHLORIDE 120 mmol/L (98-107); SODIUM 146 mmol/L (136-145)
[2022-03-24 08:12] LABS: ALBUMIN 1.6 g/dl (3.4-5.0); CALCIUM 7.8 mg/dL (8.5-10.1)
[2022-03-24 08:13] LABS: ANION GAP 9 MMOL/L (8-16); BLOOD UREA NITROGEN 84.1 mg/dL (7-18); CO2 17 mmol/L (21-32); GLUCOSE,RANDOM 94 mg/dL (74-106); MAGNESIUM 1.7 mg/dL (1.8-2.4)
[2022-03-24 08:15] LABS: SGOT/AST 10 U/L (15-37); SGPT/ALT 9 U/L (13-61)
[2022-03-24 08:16] LABS: PHOSPHOROUS 6.5 mg/dL (2.5-4.9)
[2022-03-24 08:17] LABS: BILIRUBIN,TOTAL 0.2 mg/dL (0.2-1); TOT PROT 4.2 g/dl (6.4-8.2)
[2022-03-24 08:18] LABS: ALK PHOS 57 U/L (45-117)
[2022-03-24 08:26] LABS: CREATININE 8.8 mg/dL (0.55-1.3)
[2022-03-24] MEDS ORDERED: ACETAMINOPHEN 325 MG TABLET (FP) PO ONE (08:59)
[2022-03-24 09:08] LABS: LDH 165 U/L (87-246)
[2022-03-24] MEDS: LABETALOL HCL 100 MG TABLET (FP) PO SCH ×2 (09:17→21:16)
[2022-03-24] MEDS: LIDOCAINE 5% TOPICAL PATCH TP SCH (09:17)
[2022-03-24] MEDS: SODIUM ZIRCONIUM CYCLOSILICATE (LOKELMA) 5 GM PACKET PO SCH (09:17)
[2022-03-24] MEDS: PANTOPRAZOLE 40 MG TABLET PO SCH (09:17)
[2022-03-24] MEDS ORDERED: LIDOCAINE PATCH REMOVAL MC SCH (22:00)
[2022-03-25] MEDS: hydrALAZINE HCL 25 MG TABLET (FP) PO SCH ×3 (06:57→22:24)
[2022-03-25] MEDS: LEVOTHYROXINE NA 75 MCG TABLET (FP) PO SCH (06:57)
[2022-03-25] MEDS: FUROSEMIDE 40 MG/4 ML INJECTABLE VIAL IVPB SCH ×2 (06:57→13:47)
[2022-03-25] MEDS: SODIUM BICARBONATE 650 MG TABLET PO SCH ×3 (06:57→22:24)
[2022-03-25] MEDS: CALCIUM ACETATE 667 MG CAPSULE (FP) PO SCH ×2 (08:15→12:28)
[2022-03-25 08:32] LABS: BASO % 0.7 % (0-2.0); EOS % 1.2 % (0-4.5); HEMATOCRIT 23.2 % (35.4-49); HEMOGLOBIN 7.6 GM/dL (11.7-16.9); LYMPH % 16.4 % (8-40); MCH 28.3 pg (25.7-33.7); MCHC 32.7 g/dl (32.0-35.9); MEAN CELL VOLUME 86.4 fl (80-96); MEAN PLT VOLUME 8.1 fl (7.5-11.1); MONO % 4.9 % (3.8-10.2); NEUT % 76.8 % (42.8-82.8); PLATELET COUNT 261 10^3/uL (134-434); RBC 2.69 M/mm3 (4.00-5.60); RDW 16.2 % (11.9-15.9); WHITE BLOOD COUNT 6.7 K/mm3 (4.0-10.0)
[2022-03-25 09:13] LABS: CHLORIDE 118 mmol/L (98-107); SODIUM 146 mmol/L (136-145)
[2022-03-25 09:20] LABS: ALBUMIN 1.8 g/dl (3.4-5.0); ANION GAP 9 MMOL/L (8-16); BLOOD UREA NITROGEN 82.7 mg/dL (7-18); CO2 19 mmol/L (21-32); GLUCOSE,RANDOM 91 mg/dL (74-106); MAGNESIUM 1.6 mg/dL (1.8-2.4)
[2022-03-25 09:21] LABS: PHOSPHOROUS 6.9 mg/dL (2.5-4.9)
[2022-03-25 09:23] LABS: BILIRUBIN,TOTAL 0.2 mg/dL (0.2-1); SGOT/AST 9 U/L (15-37); SGPT/ALT 10 U/L (13-61); TOT PROT 4.4 g/dl (6.4-8.2)
[2022-03-25 09:24] LABS: ALK PHOS 55 U/L (45-117)
[2022-03-25 09:26] LABS: CREATININE 9.2 mg/dL (0.55-1.3)
[2022-03-25] MEDS: SODIUM ZIRCONIUM CYCLOSILICATE (LOKELMA) 5 GM PACKET PO SCH (11:11)
[2022-03-25] MEDS: LIDOCAINE 5% TOPICAL PATCH TP SCH ×2 (11:16→11:22)
[2022-03-25] MEDS: LABETALOL HCL 100 MG TABLET (FP) PO SCH ×2 (11:16→22:24)
[2022-03-25] MEDS: PANTOPRAZOLE 40 MG TABLET PO SCH (11:17)
[2022-03-25] MEDS ORDERED: SODIUM CHLORIDE 250 ML IV PRN ×2 (13:57→17:41)
[2022-03-25] MEDS ORDERED: PROMETHAZINE HCL 25 MG/1 ML VIAL IVPB PRN ×2 (14:06→17:41)
[2022-03-25] MEDS ORDERED: ONDANSETRON 4 MG/2 ML VIAL IVPUSH PRN ×2 (14:06→17:41)
[2022-03-25] MEDS ORDERED: SODIUM CHLORIDE 1,000 ML IV SCH (14:15)
[2022-03-25] MEDS ORDERED: LIDOCAINE HCL 1%, 10 MG/ML (20ML VIAL) ONE (14:35)
[2022-03-25] MEDS ORDERED: HEPARIN NA (PORCINE) 5,000 UNITS/ML 1ML VIAL ONE (14:36)
[2022-03-25] MEDS ORDERED: ceFAZolin SODIUM 1 GM VIAL IVPB ONE (16:35)
[2022-03-25] MEDS ORDERED: LIDOCAINE HCL 1%, 10 MG/ML (20ML VIAL) NR ONE (16:50)
[2022-03-25] MEDS ORDERED: ALBUTEROL SO4 2.5/IPRATROPIUM 0.5 INH SOL 3 ML VIAL.NEB. NEB PRN (17:41)
[2022-03-25 20:07] LABS: ANTIGLOMERULAR BASEMENT MEN.AB <0.2 units (0.0-0.9); ATYPICAL pANCA <1:20 titer (Neg:<1:20); C-ANCA <1:20 titer (Neg:<1:20)
[2022-03-25] MEDS: HEPARIN NA (PORCINE) 5,000 UNITS/ML 1ML VIAL SQ SCH (22:23)
[2022-03-25] MEDS: LIDOCAINE PATCH REMOVAL MC SCH (22:24)
[2022-03-25] MEDS: SODIUM CHLORIDE 1,000 ML IV SCH (22:24)
[2022-03-26] MEDS ORDERED: ACETAMINOPHEN 500 MG TABLET (FP) PO ONE (05:35)
[2022-03-26] MEDS: HEPARIN NA (PORCINE) 5,000 UNITS/ML 1ML VIAL SQ SCH ×3 (05:48→21:39)
[2022-03-26] MEDS: SODIUM BICARBONATE 650 MG TABLET PO SCH (05:48)
[2022-03-26] MEDS: hydrALAZINE HCL 25 MG TABLET (FP) PO SCH ×3 (05:48→21:45)
[2022-03-26] MEDS ORDERED: FUROSEMIDE 40 MG/4 ML INJECTABLE VIAL IVPB SCH (06:00)
[2022-03-26] MEDS: LEVOTHYROXINE NA 75 MCG TABLET (FP) PO SCH (06:00)
[2022-03-26] MEDS ORDERED: SODIUM ZIRCONIUM CYCLOSILICATE (LOKELMA) 5 GM PACKET PO SCH (10:00)
[2022-03-26] MEDS: CALCIUM ACETATE 667 MG CAPSULE (FP) PO SCH ×4 (10:27→18:07)
[2022-03-26 10:36] LABS: BASO % 0.9 % (0-2.0); EOS % 1.3 % (0-4.5); HEMATOCRIT 21.7 % (35.4-49); HEMOGLOBIN 7.2 GM/dL (11.7-16.9); LYMPH % 17.1 % (8-40); MCH 28.5 pg (25.7-33.7); MCHC 33.1 g/dl (32.0-35.9); MEAN PLT VOLUME 7.9 fl (7.5-11.1); MONO % 5.3 % (3.8-10.2); NEUT % 75.4 % (42.8-82.8); PLATELET COUNT 244 10^3/uL (134-434); RBC 2.52 M/mm3 (4.00-5.60); RDW 16.4 % (11.9-15.9); WHITE BLOOD COUNT 6.2 K/mm3 (4.0-10.0)
[2022-03-26 10:57] LABS: CHLORIDE 118 mmol/L (98-107); SODIUM 146 mmol/L (136-145)
[2022-03-26 10:59] LABS: ANION GAP 11 MMOL/L (8-16); CALCIUM 7.8 mg/dL (8.5-10.1); CO2 16 mmol/L (21-32); MAGNESIUM 1.7 mg/dL (1.8-2.4)
[2022-03-26 11:00] LABS: ALBUMIN 1.7 g/dl (3.4-5.0); BLOOD UREA NITROGEN 81.9 mg/dL (7-18); GLUCOSE,RANDOM 125 mg/dL (74-106)
[2022-03-26 11:03] LABS: SGOT/AST 13 U/L (15-37); SGPT/ALT 8 U/L (13-61)
[2022-03-26 11:04] LABS: BILIRUBIN,TOTAL 0.2 mg/dL (0.2-1); PHOSPHOROUS 7.6 mg/dL (2.5-4.9); TOT PROT 4.3 g/dl (6.4-8.2)
[2022-03-26 11:05] LABS: ALK PHOS 56 U/L (45-117)
[2022-03-26 11:07] LABS: CREATININE 9.8 mg/dL (0.55-1.3)
[2022-03-26] MEDS: LABETALOL HCL 100 MG TABLET (FP) PO SCH ×2 (11:11→21:39)
[2022-03-26] MEDS: PANTOPRAZOLE 40 MG TABLET PO SCH (11:11)
[2022-03-26] MEDS: LIDOCAINE 5% TOPICAL PATCH TP SCH (11:12)
[2022-03-26] MEDS: SODIUM CHLORIDE 1,000 ML IV SCH (18:08)
[2022-03-26] MEDS: LIDOCAINE PATCH REMOVAL MC SCH (21:40)
[2022-03-27] MEDS: hydrALAZINE HCL 25 MG TABLET (FP) PO SCH ×3 (05:55→21:00)
[2022-03-27] MEDS: LEVOTHYROXINE NA 75 MCG TABLET (FP) PO SCH (06:11)
[2022-03-27] MEDS ORDERED: POVIDONE-IODINE OINTMENT 10% - 28.4 GM TUBE ONE (09:25)
[2022-03-27] MEDS ORDERED: LIDOCAINE HCL 1%, 10 MG/ML (20ML VIAL) ONE (09:25)
[2022-03-27] MEDS ORDERED: HEPARIN NA (PORCINE) 5,000 UNITS/ML 1ML VIAL ONE ×2 (09:26→11:37)
[2022-03-27] MEDS ORDERED: BUPIVACAINE HCL/PF 0.5% (5MG/ML) 10 ML VIAL ONE (09:26)
[2022-03-27] MEDS ORDERED: PAPAVERINE HCL 30 MG/1 ML 10 ML VIAL NR ONE (09:26)
[2022-03-27] MEDS: CALCIUM ACETATE 667 MG CAPSULE (FP) PO SCH ×3 (09:46→19:35)
[2022-03-27] MEDS: HEPARIN NA (PORCINE) 5,000 UNITS/ML 1ML VIAL SQ SCH ×3 (09:46→21:00)
[2022-03-27] MEDS: LIDOCAINE 5% TOPICAL PATCH TP SCH (09:46)
[2022-03-27] MEDS: PANTOPRAZOLE 40 MG TABLET PO SCH (09:47)
[2022-03-27] MEDS: LABETALOL HCL 100 MG TABLET (FP) PO SCH ×2 (09:47→21:01)
[2022-03-27] MEDS ORDERED: ONDANSETRON 4 MG/2 ML VIAL IVPUSH PRN ×2 (10:04→12:55)
[2022-03-27] MEDS ORDERED: PROMETHAZINE HCL 25 MG/1 ML VIAL IVPB PRN ×2 (10:04→12:55)
[2022-03-27] MEDS ORDERED: ROPIVACAINE HCL 0.5% 30ML VIAL ONE (10:14)
[2022-03-27] MEDS ORDERED: SODIUM CHLORIDE 1,000 ML IV SCH (10:15)
[2022-03-27] MEDS ORDERED: MIDAZOLAM HCL 2 MG/2 ML SINGLE DOSE VIAL ONE (10:20)
[2022-03-27] MEDS ORDERED: PROPOFOL 20 ML ONE (10:46)
[2022-03-27] MEDS ORDERED: ceFAZolin SODIUM 1 GM VIAL IVPB ONE (11:02)
[2022-03-27] MEDS ORDERED: ceFAZolin SODIUM 1 GM VIAL ONE (11:03)
[2022-03-27] MEDS ORDERED: LIDOCAINE HCL 1%, 10 MG/ML (20ML VIAL) NR ONE ×2 (11:28)
[2022-03-27] MEDS ORDERED: HEPARIN NA (PORCINE) 5,000 UNITS/ML 1ML VIAL TP ONE (11:29)
[2022-03-27] MEDS ORDERED: SODIUM CHLORIDE 250 ML IV PRN ×2 (12:23→12:55)
[2022-03-27] MEDS ORDERED: POVIDONE-IODINE OINTMENT 10% - 28.4 GM TUBE TP ONE (12:24)
[2022-03-27] MEDS ORDERED: ALBUTEROL SO4 2.5/IPRATROPIUM 0.5 INH SOL 3 ML VIAL.NEB. NEB PRN (12:55)
[2022-03-27] MEDS: SODIUM CHLORIDE 1,000 ML IV SCH (14:01)
[2022-03-27 17:27] LABS: BASO % 0.6 % (0-2.0); EOS % 1.4 % (0-4.5); HEMATOCRIT 22.5 % (35.4-49); HEMOGLOBIN 7.5 GM/dL (11.7-16.9); LYMPH % 17.3 % (8-40); MCH 28.2 pg (25.7-33.7); MCHC 33.2 g/dl (32.0-35.9); MEAN CELL VOLUME 85.1 fl (80-96); MEAN PLT VOLUME 8.2 fl (7.5-11.1); MONO % 7.4 % (3.8-10.2); NEUT % 73.3 % (42.8-82.8); PLATELET COUNT 259 10^3/uL (134-434); RBC 2.64 M/mm3 (4.00-5.60); RDW 15.9 % (11.9-15.9); WHITE BLOOD COUNT 7.1 K/mm3 (4.0-10.0)
[2022-03-27 17:45] LABS: CHLORIDE 113 mmol/L (98-107); SODIUM 146 mmol/L (136-145)
[2022-03-27 17:47] LABS: CALCIUM 7.8 mg/dL (8.5-10.1)
[2022-03-27 17:48] LABS: ALBUMIN 1.8 g/dl (3.4-5.0); ANION GAP 10 MMOL/L (8-16); CO2 22 mmol/L (21-32); MAGNESIUM 1.7 mg/dL (1.8-2.4)
[2022-03-27 17:49] LABS: GLUCOSE,RANDOM 101 mg/dL (74-106)
[2022-03-27 17:51] LABS: SGOT/AST 11 U/L (15-37)
[2022-03-27 17:52] LABS: BILIRUBIN,TOTAL 0.1 mg/dL (0.2-1); SGPT/ALT 6 U/L (13-61)
[2022-03-27 17:53] LABS: TOT PROT 4.7 g/dl (6.4-8.2)
[2022-03-27 17:54] LABS: ALK PHOS 61 U/L (45-117); BLOOD UREA NITROGEN 61.1 mg/dL (7-18)
[2022-03-27 18:03] LABS: CREATININE 8.3 mg/dL (0.55-1.3)
[2022-03-27] MEDS: LIDOCAINE PATCH REMOVAL MC SCH (21:02)
[2022-03-28] MEDS: hydrALAZINE HCL 25 MG TABLET (FP) PO SCH ×4 (05:16→21:48)
[2022-03-28] MEDS: HEPARIN NA (PORCINE) 5,000 UNITS/ML 1ML VIAL SQ SCH ×4 (05:16→21:48)
[2022-03-28] MEDS: LEVOTHYROXINE NA 75 MCG TABLET (FP) PO SCH (06:02)
[2022-03-28] MEDS: LABETALOL HCL 100 MG TABLET (FP) PO SCH ×2 (09:40→21:48)
[2022-03-28] MEDS: CALCIUM ACETATE 667 MG CAPSULE (FP) PO SCH ×3 (09:41→17:57)
[2022-03-28] MEDS: LIDOCAINE 5% TOPICAL PATCH TP SCH ×2 (09:42→14:01)
[2022-03-28] MEDS: PANTOPRAZOLE 40 MG TABLET PO SCH (09:42)
[2022-03-28 11:49] LABS: MAGNESIUM 1.6 mg/dL (1.8-2.4)
[2022-03-28 11:53] LABS: PHOSPHOROUS 5.8 mg/dL (2.5-4.9)
[2022-03-28] MEDS ORDERED: SODIUM CHLORIDE 250 ML IV PRN (12:21)
[2022-03-28] MEDS ORDERED: EPOETIN ALFA-EPBX 10,000 UNIT/ML VIAL SQ ONE ×2 (12:23→14:00)
[2022-03-28] MEDS: SODIUM CHLORIDE 1,000 ML IV SCH (14:01)
[2022-03-28 14:06] LABS: HEMATOCRIT 21.4 % (35.4-49); MCH 27.9 pg (25.7-33.7); MCHC 32.8 g/dl (32.0-35.9); MEAN CELL VOLUME 85.3 fl (80-96); MEAN PLT VOLUME 8.2 fl (7.5-11.1); PLATELET COUNT 240 10^3/uL (134-434); RBC 2.51 M/mm3 (4.00-5.60); RDW 15.8 % (11.9-15.9); WHITE BLOOD COUNT 6.4 K/mm3 (4.0-10.0)
[2022-03-28] MEDS ORDERED: MAGNESIUM SULF 50% (8.12 MEQ/2 ML-1 GM VIAL) IVPB ONE (14:06)
[2022-03-28 14:34] LABS: CHLORIDE 115 mmol/L (98-107); SODIUM 144 mmol/L (136-145)
[2022-03-28 14:35] LABS: CALCIUM 7.5 mg/dL (8.5-10.1)
[2022-03-28 14:36] LABS: ANION GAP 6 MMOL/L (8-16); BLOOD UREA NITROGEN 64.1 mg/dL (7-18); CO2 23 mmol/L (21-32); GLUCOSE,RANDOM 103 mg/dL (74-106)
[2022-03-28] MEDS ORDERED: FUROSEMIDE 40 MG/4 ML INJECTABLE VIAL IVPUSH ONE (19:00)
[2022-03-28] MEDS: LIDOCAINE PATCH REMOVAL MC SCH (21:49)
[2022-03-29] MEDS: HEPARIN NA (PORCINE) 5,000 UNITS/ML 1ML VIAL SQ SCH ×3 (06:24→22:25)
[2022-03-29] MEDS: hydrALAZINE HCL 25 MG TABLET (FP) PO SCH ×3 (06:24→22:25)
[2022-03-29] MEDS: LEVOTHYROXINE NA 75 MCG TABLET (FP) PO SCH (06:24)
[2022-03-29] MEDS: CALCIUM ACETATE 667 MG CAPSULE (FP) PO SCH ×3 (08:06→17:28)
[2022-03-29] MEDS: PANTOPRAZOLE 40 MG TABLET PO SCH (09:11)
[2022-03-29] MEDS: LABETALOL HCL 100 MG TABLET (FP) PO SCH ×2 (09:11→22:24)
[2022-03-29] MEDS: LIDOCAINE 5% TOPICAL PATCH TP SCH (09:12)
[2022-03-29 11:40] LABS: HEMOGLOBIN 8.3 GM/dL (11.7-16.9); MCH 27.9 pg (25.7-33.7); MCHC 33.3 g/dl (32.0-35.9); MEAN CELL VOLUME 83.8 fl (80-96); MEAN PLT VOLUME 8.1 fl (7.5-11.1); PLATELET COUNT 233 10^3/uL (134-434); RBC 2.99 M/mm3 (4.00-5.60); RDW 16.5 % (11.9-15.9); WHITE BLOOD COUNT 7.2 K/mm3 (4.0-10.0)
[2022-03-29 12:02] LABS: CALCIUM 7.9 mg/dL (8.5-10.1)
[2022-03-29 12:03] LABS: ALBUMIN 1.7 g/dl (3.4-5.0); BLOOD UREA NITROGEN 43.5 mg/dL (7-18)
[2022-03-29 12:06] LABS: CREATININE 6.1 mg/dL (0.55-1.3); PHOSPHOROUS 4.3 mg/dL (2.5-4.9)
[2022-03-29 12:08] LABS: BILIRUBIN,TOTAL 0.3 mg/dL (0.2-1); TOT PROT 4.5 g/dl (6.4-8.2)
[2022-03-29] MEDS: FUROSEMIDE 40 MG TABLET (FP) PO SCH (13:01)
[2022-03-29] MEDS: SODIUM CHLORIDE 1,000 ML IV SCH (13:51)
[2022-03-29] MEDS: LIDOCAINE PATCH REMOVAL MC SCH (22:25)
[2022-03-30] MEDS: hydrALAZINE HCL 25 MG TABLET (FP) PO SCH ×3 (06:30→21:22)
[2022-03-30] MEDS: HEPARIN NA (PORCINE) 5,000 UNITS/ML 1ML VIAL SQ SCH ×3 (06:30→21:22)
[2022-03-30] MEDS: LEVOTHYROXINE NA 75 MCG TABLET (FP) PO SCH (06:30)
[2022-03-30] MEDS: CALCIUM ACETATE 667 MG CAPSULE (FP) PO SCH ×3 (08:46→17:53)
[2022-03-30] MEDS: FUROSEMIDE 40 MG TABLET (FP) PO SCH (09:56)
[2022-03-30] MEDS: LABETALOL HCL 100 MG TABLET (FP) PO SCH ×2 (09:57→21:24)
[2022-03-30] MEDS: PANTOPRAZOLE 40 MG TABLET PO SCH (09:58)
[2022-03-30] MEDS: LIDOCAINE 5% TOPICAL PATCH TP SCH (10:00)
[2022-03-30 10:36] LABS: HEMATOCRIT 25.7 % (35.4-49); HEMOGLOBIN 8.7 GM/dL (11.7-16.9); MCH 28.4 pg (25.7-33.7); MCHC 33.8 g/dl (32.0-35.9); MEAN CELL VOLUME 83.8 fl (80-96); MEAN PLT VOLUME 7.4 fl (7.5-11.1); PLATELET COUNT 241 10^3/uL (134-434); RBC 3.07 M/mm3 (4.00-5.60); RDW 16.4 % (11.9-15.9)
[2022-03-30 11:05] LABS: CALCIUM 8.3 mg/dL (8.5-10.1)
[2022-03-30 11:06] LABS: BLOOD UREA NITROGEN 45.6 mg/dL (7-18)
[2022-03-30 11:09] LABS: PHOSPHOROUS 4.1 mg/dL (2.5-4.9)
[2022-03-30] MEDS ORDERED: POLYETHYLENE GLYCOL (HEALTHYLAX) 3350 17 GM PACKET PO SCH (18:00)
[2022-03-30] MEDS ORDERED: POLYETHYLENE GLYCOL (HEALTHYLAX) 3350 17 GM PACKET PO ONE (18:00)
[2022-03-30] MEDS: LIDOCAINE PATCH REMOVAL MC SCH (21:24)
[2022-03-30] MEDS ORDERED: MINERAL OIL ENEMA 133 ML ENEMA RC ONE (23:16)
[2022-03-31] MEDS: hydrALAZINE HCL 25 MG TABLET (FP) PO SCH ×3 (06:07→23:04)
[2022-03-31] MEDS: HEPARIN NA (PORCINE) 5,000 UNITS/ML 1ML VIAL SQ SCH ×3 (06:07→23:04)
[2022-03-31] MEDS: LEVOTHYROXINE NA 75 MCG TABLET (FP) PO SCH (06:08)
[2022-03-31] MEDS: CALCIUM ACETATE 667 MG CAPSULE (FP) PO SCH ×3 (08:17→17:32)
[2022-03-31 08:59] LABS: HEMATOCRIT 24.8 % (35.4-49); HEMOGLOBIN 8.3 GM/dL (11.7-16.9); MCH 28.5 pg (25.7-33.7); MCHC 33.6 g/dl (32.0-35.9); MEAN CELL VOLUME 84.8 fl (80-96); MEAN PLT VOLUME 7.5 fl (7.5-11.1); PLATELET COUNT 235 10^3/uL (134-434); RBC 2.92 M/mm3 (4.00-5.60); RDW 16.4 % (11.9-15.9)
[2022-03-31 09:12] LABS: CHLORIDE 109 mmol/L (98-107); SODIUM 143 mmol/L (136-145)
[2022-03-31 09:16] LABS: ALBUMIN 1.7 g/dl (3.4-5.0); ANION GAP 10 MMOL/L (8-16); BLOOD UREA NITROGEN 49.4 mg/dL (7-18); CALCIUM 8.1 mg/dL (8.5-10.1); CO2 24 mmol/L (21-32); GLUCOSE,RANDOM 88 mg/dL (74-106)
[2022-03-31 09:19] LABS: CREATININE 7.2 mg/dL (0.55-1.3); SGOT/AST 10 U/L (15-37); SGPT/ALT < 6 U/L (13-61)
[2022-03-31 09:21] LABS: BILIRUBIN,TOTAL 0.4 mg/dL (0.2-1); TOT PROT 4.4 g/dl (6.4-8.2)
[2022-03-31 09:22] LABS: ALK PHOS 62 U/L (45-117)
[2022-03-31] MEDS ORDERED: SODIUM CHLORIDE 250 ML IV PRN (09:25)
[2022-03-31] MEDS ORDERED: EPOETIN ALFA-EPBX 10,000 UNIT/ML VIAL IVPUSH ONE (10:00)
[2022-03-31] MEDS: LABETALOL HCL 100 MG TABLET (FP) PO SCH ×2 (12:16→23:05)
[2022-03-31] MEDS: PANTOPRAZOLE 40 MG TABLET PO SCH (12:16)
[2022-03-31] MEDS: LIDOCAINE 5% TOPICAL PATCH TP SCH (12:17)
[2022-03-31] MEDS: LIDOCAINE PATCH REMOVAL MC SCH (23:10)
[2022-04-01] MEDS: hydrALAZINE HCL 25 MG TABLET (FP) PO SCH (06:09)
[2022-04-01] MEDS: HEPARIN NA (PORCINE) 5,000 UNITS/ML 1ML VIAL SQ SCH ×3 (06:09→21:01)
[2022-04-01] MEDS: LEVOTHYROXINE NA 75 MCG TABLET (FP) PO SCH (06:09)
[2022-04-01] MEDS: CALCIUM ACETATE 667 MG CAPSULE (FP) PO SCH ×3 (08:43→18:56)
[2022-04-01 09:52] LABS: HEMATOCRIT 25.8 % (35.4-49); HEMOGLOBIN 8.4 GM/dL (11.7-16.9); MCH 27.9 pg (25.7-33.7); MCHC 32.7 g/dl (32.0-35.9); MEAN CELL VOLUME 85.2 fl (80-96); MEAN PLT VOLUME 7.5 fl (7.5-11.1); PLATELET COUNT 232 10^3/uL (134-434); RBC 3.02 M/mm3 (4.00-5.60); RDW 16.3 % (11.9-15.9); WHITE BLOOD COUNT 7.2 K/mm3 (4.0-10.0)
[2022-04-01] MEDS: LABETALOL HCL 100 MG TABLET (FP) PO SCH ×2 (10:11→21:01)
[2022-04-01] MEDS: PANTOPRAZOLE 40 MG TABLET PO SCH (10:12)
[2022-04-01] MEDS: LIDOCAINE 5% TOPICAL PATCH TP SCH (10:12)
[2022-04-01 10:25] LABS: BLOOD UREA NITROGEN 29.5 mg/dL (7-18)
[2022-04-01 10:28] LABS: CALCIUM 8.3 mg/dL (8.5-10.1); CREATININE 5.4 mg/dL (0.55-1.3); MAGNESIUM 1.9 mg/dL (1.8-2.4)
[2022-04-01 10:29] LABS: PHOSPHOROUS 3.6 mg/dL (2.5-4.9)
[2022-04-01] MEDS ORDERED: hydrALAZINE HCL 25 MG TABLET (FP) PO SCH (11:15)
[2022-04-01] MEDS: LIDOCAINE PATCH REMOVAL MC SCH (21:01)
[2022-04-02] MEDS: HEPARIN NA (PORCINE) 5,000 UNITS/ML 1ML VIAL SQ SCH ×3 (06:21→21:04)
[2022-04-02] MEDS: LEVOTHYROXINE NA 75 MCG TABLET (FP) PO SCH (06:21)
[2022-04-02] MEDS: LABETALOL HCL 100 MG TABLET (FP) PO SCH ×2 (10:20→21:04)
[2022-04-02] MEDS: CALCIUM ACETATE 667 MG CAPSULE (FP) PO SCH ×3 (10:20→17:48)
[2022-04-02] MEDS: PANTOPRAZOLE 40 MG TABLET PO SCH (10:20)
[2022-04-02] MEDS: LIDOCAINE 5% TOPICAL PATCH TP SCH (10:27)
[2022-04-02 11:03] LABS: HEMATOCRIT 24.8 % (35.4-49); HEMOGLOBIN 8.2 GM/dL (11.7-16.9); MCH 28.3 pg (25.7-33.7); MCHC 32.9 g/dl (32.0-35.9); MEAN CELL VOLUME 85.9 fl (80-96); MEAN PLT VOLUME 7.3 fl (7.5-11.1); PLATELET COUNT 222 10^3/uL (134-434); RBC 2.89 M/mm3 (4.00-5.60); RDW 16.3 % (11.9-15.9); WHITE BLOOD COUNT 7.3 K/mm3 (4.0-10.0)
[2022-04-02 11:42] LABS: CALCIUM 8.2 mg/dL (8.5-10.1)
[2022-04-02 11:43] LABS: MAGNESIUM 1.9 mg/dL (1.8-2.4)
[2022-04-02 11:46] LABS: CREATININE 6.3 mg/dL (0.55-1.3)
[2022-04-02] MEDS ORDERED: SODIUM CHLORIDE 250 ML IV PRN (18:23)
[2022-04-02] MEDS: LIDOCAINE PATCH REMOVAL MC SCH (21:04)
[2022-04-03] MEDS: LEVOTHYROXINE NA 75 MCG TABLET (FP) PO SCH (06:08)
[2022-04-03] MEDS: HEPARIN NA (PORCINE) 5,000 UNITS/ML 1ML VIAL SQ SCH (06:09)
[2022-04-03] MEDS: PANTOPRAZOLE 40 MG TABLET PO SCH ×2 (11:09→11:48)
[2022-04-03] MEDS: LIDOCAINE 5% TOPICAL PATCH TP SCH ×2 (11:09→11:50)
[2022-04-03] MEDS: LABETALOL HCL 100 MG TABLET (FP) PO SCH ×3 (11:09→21:36)
[2022-04-03] MEDS: CALCIUM ACETATE 667 MG CAPSULE (FP) PO SCH ×4 (11:09→17:24)
[2022-04-03 11:56] LABS: HEMATOCRIT 26.5 % (35.4-49); HEMOGLOBIN 8.6 GM/dL (11.7-16.9); MCHC 32.4 g/dl (32.0-35.9); MEAN CELL VOLUME 86.3 fl (80-96); MEAN PLT VOLUME 7.3 fl (7.5-11.1); PLATELET COUNT 240 10^3/uL (134-434); RBC 3.07 M/mm3 (4.00-5.60); RDW 16.3 % (11.9-15.9); WHITE BLOOD COUNT 7.3 K/mm3 (4.0-10.0)
[2022-04-03 12:08] LABS: CALCIUM 8.4 mg/dL (8.5-10.1)
[2022-04-03 12:09] LABS: BLOOD UREA NITROGEN 35.6 mg/dL (7-18); MAGNESIUM 1.9 mg/dL (1.8-2.4)
[2022-04-03 12:12] LABS: CREATININE 6.8 mg/dL (0.55-1.3); PHOSPHOROUS 4.1 mg/dL (2.5-4.9)
[2022-04-03] MEDS ORDERED: HEPARIN NA (PORCINE) 5,000 UNITS/ML 1ML VIAL IVPUSH ONE (13:30)
[2022-04-03 19:26] VITALS: RESP 20
[2022-04-03] MEDS: LIDOCAINE PATCH REMOVAL MC SCH (21:36)
[2022-04-04] MEDS: LEVOTHYROXINE NA 75 MCG TABLET (FP) PO SCH (06:23)
[2022-04-04 07:23] VITALS: TEMP 98.2
[2022-04-04 10:08] VITALS: BP 134/64; PULSE 65
[2022-04-04] MEDS: LIDOCAINE 5% TOPICAL PATCH TP SCH (10:10)
[2022-04-04] MEDS: LABETALOL HCL 100 MG TABLET (FP) PO SCH (10:10)
[2022-04-04] MEDS: PANTOPRAZOLE 40 MG TABLET PO SCH (10:10)
[2022-04-04] MEDS: CALCIUM ACETATE 667 MG CAPSULE (FP) PO SCH ×3 (10:10→18:14)
[2022-04-04] MEDS ORDERED: SODIUM CHLORIDE 250 ML IV PRN (13:18)
[2022-04-05] MEDS ORDERED: EPOETIN ALFA-EPBX 10,000 UNIT/ML VIAL SQ ONE (13:18)
== END 2022-04-04 18:59 | disposition home or self-care (01) | DRG 264 ==
LOC: JER 07:47 → JERBED 15:36 → J4W 20:54 → J5S 03-25 16:29
PROVIDERS: ADMIT Internal Medicine; ATTEND Internal Medicine
PROC: 0W9B30Z Drainage of Left Pleural Cavity with Drainage Device, Percutaneous Approach (ICD-10-PCS; principal; 2022-03-20)
PROC: B513ZZA Fluoroscopy of Right Jugular Veins, Guidance (ICD-10-PCS; 2022-03-25)
PROC: 02H633Z Insertion of Infusion Device into Right Atrium, Percutaneous Approach (ICD-10-PCS; 2022-03-25)
PROC: 0JH60XZ Insertion of Tunneled Vascular Access Device into Chest Subcutaneous Tissue and Fascia, Open Approach (ICD-10-PCS; 2022-03-25)
PROC: 5A1D70Z Performance of Urinary Filtration, Intermittent, Less than 6 Hours Per Day (ICD-10-PCS; 2022-03-26)
PROC: 031809D Bypass Left Brachial Artery to Upper Arm Vein with Autologous Venous Tissue, Open Approach (ICD-10-PCS; 2022-03-27)
PROC: 5A1D70Z Performance of Urinary Filtration, Intermittent, Less than 6 Hours Per Day (ICD-10-PCS; 2022-03-28)
PROC: 5A1D70Z Performance of Urinary Filtration, Intermittent, Less than 6 Hours Per Day (ICD-10-PCS; 2022-03-28)
PROC: 30233N1 Transfusion of Nonautologous Red Blood Cells into Peripheral Vein, Percutaneous Approach (ICD-10-PCS; 2022-03-28)
PROC: 5A1D70Z Performance of Urinary Filtration, Intermittent, Less than 6 Hours Per Day (ICD-10-PCS; 2022-03-31)
DX: I13.2 Hypertensive heart and chronic kidney disease with heart failure and with stage 5 chronic kidney disease, or end stage renal disease (principal); I50.33 Acute on chronic diastolic (congestive) heart failure; N18.6 End stage renal disease; N17.9 Acute kidney failure, unspecified; I16.1 Hypertensive emergency; E87.20 Acidosis, unspecified; I47.20 Ventricular tachycardia, unspecified; J90 Pleural effusion, not elsewhere classified; B19.10 Unspecified viral hepatitis B without hepatic coma; I24.8 Other forms of acute ischemic heart disease; E78.5 Hyperlipidemia, unspecified; R80.9 Proteinuria, unspecified; I95.1 Orthostatic hypotension; D63.1 Anemia in chronic kidney disease; R77.8 Other specified abnormalities of plasma proteins; N52.9 Male erectile dysfunction, unspecified; E87.5 Hyperkalemia; Z91.199 Patient's noncompliance with other medical treatment and regimen due to unspecified reason; Z99.2 Dependence on renal dialysis; E03.9 Hypothyroidism, unspecified; E86.1 Hypovolemia
CPT/HCPCS: 36415; 36430; 71045-TC-FY; 76000-TC-FY; 76775-TC; 80048; 80053; 80061; 81003; 82042; 82150; 82272; 82607; 82610; 82728; 82746; 82803; 82945; 83516; 83520; 83540; 83550; 83615; 83735; 83880; 83883; 83986; 84100; 84155; 84157; 84165; 84439; 84443; 84478; 84484; 84560; 85025; 85027; 85610; 85730; 86038; 86256; 86704; 86708; 86803; 86850; 86900; 86901; 86922; 87070; 87075; 87086; 87205; 87340; 87517; 87522; 88108; 88305-TC; 93005; 93010; 93306-TC; 93970-TC; 93985; 94760; 94761; 97116-GP; 97162-GP; 99291; C1750; C9803-CS; J1644; J1756; P9058; Q5106; U0003; U0005

== ENCOUNTER 2023-04-08 23:52 | Observation (INO) | payer OTHER ==
[2023-04-09 01:17] LABS: VENOUS BASE EXCESS -9.3 mmol/L (-2-2); VENOUS O2 SATURATION 52.7 % (70-80); VENOUS PCO2 42.7 mmHg (38-52); VENOUS PH 7.235 (7.310-7.410)
[2023-04-09 01:18] LABS: BASO % 0.9 % (0-2.0); EOS % 0.9 % (0-4.5); HEMATOCRIT 30.4 % (35.4-49); MCHC 32.8 g/dl (32.0-35.9); MEAN CELL VOLUME 85.2 fl (80-96); MEAN PLT VOLUME 7.3 fl (7.5-11.1); MONO % 5.9 % (3.8-10.2); NEUT % 77.3 % (42.8-82.8); PLATELET COUNT 229 10^3/uL (134-434); RBC 3.57 M/mm3 (4.00-5.60); RDW 17.3 % (11.9-15.9); WHITE BLOOD COUNT 8.7 K/mm3 (4.0-10.0)
[2023-04-09] MEDS ORDERED: LABETALOL HCL 20 MG/4 ML VIAL ONE (01:23)
[2023-04-09] MEDS: LABETALOL HCL 5 MG/1 ML (100MG/20 ML VIAL) IVPUSH ONE (01:26)
[2023-04-09 01:30] LABS: INR 1.08 (0.83-1.09); PROTHROMBIN TIME (PATIENT) 12.5 SEC (9.7-13.0)
[2023-04-09 01:32] LABS: ACTIVATED PTT 34.5 SECONDS (25.2-36.5)
[2023-04-09 02:12] LABS: CHLORIDE 109 mmol/L (98-107); POTASSIUM 5.2 mmol/L (3.5-5.1); SODIUM 143 mmol/L (136-145)
[2023-04-09 02:14] LABS: CALCIUM 8.3 mg/dL (8.5-10.1)
[2023-04-09 02:15] LABS: ALBUMIN 3.8 g/dl (3.4-5.0); ANION GAP 16 mmol/L (4-13); CO2 19 mmol/L (21-32); GLUCOSE,RANDOM 107 mg/dL (74-106); MAGNESIUM 2.7 mg/dL (1.8-2.4)
[2023-04-09 02:18] LABS: SGOT/AST 22 U/L (15-37); SGPT/ALT 20 U/L (13-61)
[2023-04-09 02:19] LABS: TOT PROT 7.3 g/dl (6.4-8.2)
[2023-04-09 02:20] LABS: BILIRUBIN,TOTAL 0.4 mg/dL (0.2-1)
[2023-04-09 02:21] LABS: ALK PHOS 76 U/L (45-117)
[2023-04-09 02:36] LABS: BLOOD UREA NITROGEN 104.8 mg/dL (7-18); CREATININE 16.5 mg/dL (0.55-1.3); N-TERMINAL BNP 56298.8 pg/ml (5-450); PHOSPHOROUS 9.7 mg/dL (2.5-4.9)
[2023-04-09] MEDS: HEPARIN NA (PORCINE) 5,000 UNITS/ML 1ML VIAL SQ SCH (10:24)
[2023-04-09 10:39] VITALS: BMI 23.2
[2023-04-09] MEDS: NICOTINE 21 MG/24 HOURS TOPICAL PATCH TD SCH (10:51)
[2023-04-09] MEDS ORDERED: SODIUM CHLORIDE 250 ML IV PRN (11:00)
[2023-04-09] MEDS: HEPARIN NA (PORCINE) 5,000 UNITS/ML 1ML VIAL IVPUSH ONE (15:19)
[2023-04-09] MEDS: EPOETIN ALFA-EPBX 10,000 UNIT/ML VIAL SQ ONE (15:19)
[2023-04-09 20:32] VITALS: RESP 18
[2023-04-10 13:01] LABS: BASO % 1.2 % (0-2.0); EOS % 1.1 % (0-4.5); HEMATOCRIT 28.5 % (35.4-49); HEMOGLOBIN 9.5 GM/dL (11.7-16.9); LYMPH % 20.9 % (8-40); MCHC 33.1 g/dl (32.0-35.9); MEAN CELL VOLUME 84.5 fl (80-96); MEAN PLT VOLUME 7.3 fl (7.5-11.1); MONO % 10.1 % (3.8-10.2); NEUT % 66.7 % (42.8-82.8); PLATELET COUNT 230 10^3/uL (134-434); RBC 3.38 M/mm3 (4.00-5.60); RDW 16.5 % (11.9-15.9); WHITE BLOOD COUNT 6.2 K/mm3 (4.0-10.0)
[2023-04-10 13:24] LABS: CHLORIDE 103 mmol/L (98-107); POTASSIUM 4.8 mmol/L (3.5-5.1); SODIUM 142 mmol/L (136-145)
[2023-04-10 13:26] LABS: CALCIUM 8.6 mg/dL (8.5-10.1)
[2023-04-10 13:27] LABS: ALBUMIN 3.1 g/dl (3.4-5.0); ANION GAP 11 mmol/L (4-13); CO2 28 mmol/L (21-32); GLUCOSE,RANDOM 80 mg/dL (74-106)
[2023-04-10 13:30] LABS: SGOT/AST 13 U/L (15-37); SGPT/ALT 17 U/L (13-61)
[2023-04-10 13:31] LABS: BILIRUBIN,TOTAL 0.3 mg/dL (0.2-1); TOT PROT 6.6 g/dl (6.4-8.2)
[2023-04-10 13:33] LABS: ALK PHOS 69 U/L (45-117)
[2023-04-10 13:39] LABS: BLOOD UREA NITROGEN 70.2 mg/dL (7-18); CREATININE 11.7 mg/dL (0.55-1.3)
[2023-04-10] MEDS: ASPIRIN 81 MG CHEWABLE TABLETS PO ONE (14:25)
[2023-04-10] MEDS: amLODIPine BESYLATE 5 MG TABLET (FP) PO SCH (14:25)
[2023-04-10 14:38] VITALS: BP 147/85; PULSE 86; TEMP 98.8
[2023-04-10] MEDS ORDERED: SODIUM CHLORIDE 250 ML IV PRN (14:52)
[2023-04-11] MEDS ORDERED: EPOETIN ALFA-EPBX 10,000 UNIT/ML VIAL SQ ONE (14:52)
== END 2023-04-10 18:11 | disposition left against medical advice (07) ==
LOC: JER 23:52 → JERBED 04-09 03:14 → INTOOBSV 04-09 03:14 → UNDOADMOB 04-09 03:14 → J4W 04-09 09:35 → JERBED 04-09 09:35 → J4W 04-10 11:28
PROVIDERS: ADMIT Internal Medicine; ATTEND Internal Medicine
PROC: 3E023GC Introduction of Other Therapeutic Substance into Muscle, Percutaneous Approach (ICD-10-PCS; principal; 2023-04-10)
PROC: 3E033GC Introduction of Other Therapeutic Substance into Peripheral Vein, Percutaneous Approach (ICD-10-PCS; 2023-04-10)
PROC: 3E0337Z Introduction of Electrolytic and Water Balance Substance into Peripheral Vein, Percutaneous Approach (ICD-10-PCS; 2023-04-10)
DX: I12.0 Hypertensive chronic kidney disease with stage 5 chronic kidney disease or end stage renal disease (principal); N18.6 End stage renal disease; Z99.2 Dependence on renal dialysis; I16.0 Hypertensive urgency; Z91.158 Patient's noncompliance with renal dialysis for other reason; E87.20 Acidosis, unspecified; E87.5 Hyperkalemia; R77.8 Other specified abnormalities of plasma proteins; E03.9 Hypothyroidism, unspecified; E78.5 Hyperlipidemia, unspecified; F17.200 Nicotine dependence, unspecified, uncomplicated
CPT/HCPCS: 0241U-QW; 36415; 71045-TC-FY; 80053; 82803; 83036; 83735; 83880; 84100; 84439; 84443; 84484; 85025; 85610; 85730; 86704; 86803; 87340; 87517; 87522; 93005; 93010; 93306-TC; 94660; 96361; 96372; 96374; 96375; 99291; G0378; J1644; Q5106

== ENCOUNTER 2023-09-10 18:44 | Emergency (ER) | payer OTHER ==
[2023-09-10 19:59] VITALS: BP 123/56; PULSE 86; RESP 18; TEMP 98.2; BMI 23.0
== END 2023-09-10 21:33 | disposition home or self-care (01) ==
LOC: JER 18:44
DX: T82.838A Hemorrhage due to vascular prosthetic devices, implants and grafts, initial encounter (principal); Y83.1 Surgical operation with implant of artificial internal device as the cause of abnormal reaction of the patient, or of later complication, without mention of misadventure at the time of the procedure
CPT/HCPCS: 99282-25

== ENCOUNTER 2023-12-17 11:11 | Observation (INO) | payer OTHER ==
[2023-12-17 13:12] LABS: BASO % 0.6 % (0-2.0); EOS % 0.5 % (0-4.5); HEMATOCRIT 42.1 % (35.4-49); HEMOGLOBIN 13.7 GM/dL (11.7-16.9); LYMPH % 12.7 % (8-40); MCH 28.1 pg (25.7-33.7); MCHC 32.5 g/dl (32.0-35.9); MEAN CELL VOLUME 86.5 fl (80-96); MEAN PLT VOLUME 7.7 fl (7.5-11.1); MONO % 5.2 % (3.8-10.2); PLATELET COUNT 285 10^3/uL (134-434); RBC 4.86 M/mm3 (4.00-5.60); RDW 17.6 % (11.9-15.9); WHITE BLOOD COUNT 5.5 K/mm3 (4.0-10.0)
[2023-12-17 13:42] LABS: CHLORIDE 103 mmol/L (98-107); POTASSIUM 4.1 mmol/L (3.5-5.1); SODIUM 140 mmol/L (136-145)
[2023-12-17 13:44] LABS: ALBUMIN 3.6 g/dl (3.4-5.0); ANION GAP 13 mmol/L (4-13); CALCIUM 9.2 mg/dL (8.5-10.1); CO2 23 mmol/L (21-32)
[2023-12-17 13:45] LABS: GLUCOSE,RANDOM 59 mg/dL (74-106); MAGNESIUM 2.4 mg/dL (1.8-2.4)
[2023-12-17 13:47] LABS: SGOT/AST 8 U/L (15-37); SGPT/ALT 9 U/L (13-61)
[2023-12-17 13:49] LABS: BILIRUBIN,TOTAL 0.5 mg/dL (0.2-1); TOT PROT 7.2 g/dl (6.4-8.2)
[2023-12-17 13:50] LABS: ALK PHOS 69 U/L (45-117)
[2023-12-17 14:17] LABS: CREATININE 15.4 mg/dL (0.55-1.3); PHOSPHOROUS 8.7 mg/dL (2.5-4.9)
[2023-12-17 21:15] VITALS: RESP 18
[2023-12-17] MEDS ORDERED: LABETALOL HCL 100 MG TABLET (FP) PO SCH (22:45)
[2023-12-18 00:20] VITALS: BMI 19.0
[2023-12-18] MEDS: LEVOTHYROXINE NA 75 MCG TABLET (FP) PO SCH (06:50)
[2023-12-18 07:31] LABS: BASO % 0.6 % (0-2.0); HEMATOCRIT 40.4 % (35.4-49); HEMOGLOBIN 13.3 GM/dL (11.7-16.9); LYMPH % 23.5 % (8-40); MCH 28.2 pg (25.7-33.7); MCHC 32.9 g/dl (32.0-35.9); MEAN CELL VOLUME 85.7 fl (80-96); MEAN PLT VOLUME 7.8 fl (7.5-11.1); MONO % 7.7 % (3.8-10.2); NEUT % 67.2 % (42.8-82.8); PLATELET COUNT 267 10^3/uL (134-434); RBC 4.72 M/mm3 (4.00-5.60); RDW 17.6 % (11.9-15.9); WHITE BLOOD COUNT 5.8 K/mm3 (4.0-10.0)
[2023-12-18 07:52] LABS: CHLORIDE 105 mmol/L (98-107); SODIUM 141 mmol/L (136-145)
[2023-12-18 08:04] LABS: ALBUMIN 3.5 g/dl (3.4-5.0); ANION GAP 14 mmol/L (4-13); CALCIUM 8.7 mg/dL (8.5-10.1); CO2 22 mmol/L (21-32)
[2023-12-18 08:05] LABS: BLOOD UREA NITROGEN 57.9 mg/dL (7-18); GLUCOSE,RANDOM 72 mg/dL (74-106)
[2023-12-18 08:07] LABS: SGPT/ALT 10 U/L (13-61)
[2023-12-18 08:08] LABS: SGOT/AST 7 U/L (15-37)
[2023-12-18 08:09] LABS: ALK PHOS 69 U/L (45-117); BILIRUBIN,TOTAL 0.4 mg/dL (0.2-1); TOT PROT 6.8 g/dl (6.4-8.2)
[2023-12-18 08:12] LABS: CREATININE 16.5 mg/dL (0.55-1.3)
[2023-12-18] MEDS: CALCIUM ACETATE 667 MG CAPSULE (FP) PO SCH (08:16)
[2023-12-18] MEDS ORDERED: SODIUM CHLORIDE 250 ML IV PRN ×2 (09:20→11:00)
[2023-12-18] MEDS ORDERED: PANTOPRAZOLE 40 MG TABLET PO SCH (10:00)
[2023-12-18 10:30] VITALS: TEMP 98.2
[2023-12-18] MEDS: ALBUMIN HUMAN 25% 12.5 GM/50 ML VIAL IV SCH (11:39)
[2023-12-18] MEDS: HEPARIN NA (PORCINE) 5,000 UNITS/ML 1ML VIAL IVPUSH ONE (11:41)
[2023-12-18 12:48] VITALS: BP 128/82; PULSE 80
== END 2023-12-18 13:03 | disposition left against medical advice (07) ==
LOC: JER 11:11 → JERBED 14:28 → J4W 19:39
PROVIDERS: ADMIT Internal Medicine; ATTEND Internal Medicine
PROC: 3E033NZ Introduction of Analgesics, Hypnotics, Sedatives into Peripheral Vein, Percutaneous Approach (ICD-10-PCS; principal; 2023-12-17)
PROC: 3E0337Z Introduction of Electrolytic and Water Balance Substance into Peripheral Vein, Percutaneous Approach (ICD-10-PCS; 2023-12-17)
DX: I12.0 Hypertensive chronic kidney disease with stage 5 chronic kidney disease or end stage renal disease (principal); E78.5 Hyperlipidemia, unspecified; F10.21 Alcohol dependence, in remission; F55.3 Abuse of steroids or hormones; E03.9 Hypothyroidism, unspecified; N18.6 End stage renal disease; Z99.2 Dependence on renal dialysis; Z87.891 Personal history of nicotine dependence
CPT/HCPCS: 36415; 71045-TC-FY; 80053; 83735; 84100; 85025; 86803; 87340; 87522; 93005; 93010; 96374; 99285-25; G0378; J1644; P9047

== ENCOUNTER 2024-06-14 11:08 | Inpatient (IN) | payer OTHER ==
[2024-06-14 11:23] VITALS: RESP 18; BMI 17.9
[2024-06-14 12:06] LABS: ABSOLUTE IMMATURE GRANULOCYTES 0.03 x10^3/uL (0.0-0.031); BASOPHILS # 0.05 x10^3/uL (0.01-0.08); EOSINOPHIL % 0.4 % (0.8-7.0); EOSINOPHILS # 0.02 x10^3/uL (0.04-0.54); HEMOGLOBIN 11.9 g/dL (13.7-17.5); MCHC 32.2 g/dl (32.3-36.5); MEAN PLT VOLUME 9.5 fl (9.4-12.4); MONOCYTE # 0.45 x10^3/uL (0.30-0.82); MONOCYTE % 9.9 % (5.3-12.2); PLATELET COUNT 176 x10^3/uL (163-337); RDW 16.2 % (12.2-16.6)
[2024-06-14 12:29] LABS: CHLORIDE 95 mmol/L (98-107); POTASSIUM 4.2 mmol/L (3.5-5.1); SODIUM 136 mmol/L (136-145)
[2024-06-14 12:34] LABS: ALBUMIN 3.4 g/dl (3.4-5.0); ANION GAP 12 mmol/L (4-13); BLOOD UREA NITROGEN 80.5 mg/dL (7-18); CALCIUM 9.1 mg/dL (8.5-10.1); CO2 29 mmol/L (21-32); GLUCOSE,RANDOM 108 mg/dL (74-106); MAGNESIUM 2.6 mg/dL (1.8-2.4)
[2024-06-14 12:37] LABS: PHOSPHOROUS 5.7 mg/dL (2.5-4.9); SGOT/AST 13 U/L (15-37); SGPT/ALT 10 U/L (13-61)
[2024-06-14 12:39] LABS: BILIRUBIN,TOTAL 0.5 mg/dL (0.2-1); TOT PROT 6.3 g/dl (6.4-8.2)
[2024-06-14 12:40] LABS: ALK PHOS 67 U/L (45-117)
[2024-06-14 12:45] LABS: CREATININE 14.7 mg/dL (0.55-1.3)
[2024-06-14] MEDS: SODIUM CHLORIDE 250 ML IV PRN (14:30)
[2024-06-14 17:49] VITALS: BP 157/95; PULSE 88; TEMP 97.8
== END 2024-06-14 19:43 | disposition home or self-care (01) | DRG 682 ==
LOC: JER 11:08 → JERBED 13:27 → OBSVTOIN 16:03
PROVIDERS: ADMIT Internal Medicine; ATTEND Internal Medicine
PROC: 5A1D70Z Performance of Urinary Filtration, Intermittent, Less than 6 Hours Per Day (ICD-10-PCS; principal; 2024-06-14)
DX: I12.0 Hypertensive chronic kidney disease with stage 5 chronic kidney disease or end stage renal disease (principal); N18.6 End stage renal disease; I45.2 Bifascicular block; Z99.2 Dependence on renal dialysis; R80.9 Proteinuria, unspecified; E78.5 Hyperlipidemia, unspecified; E03.9 Hypothyroidism, unspecified
CPT/HCPCS: 36415; 80053; 83735; 84100; 85025; 86704; 86705; 87340; 87517; 93005; 93010; 99285-25; G0378